=== PATIENT | female | born 1935 | race Caucasian/White ===

== ENCOUNTER → 2016-11-06 | Outpatient (CLI) | payer OTHER, BC ==
[~2016-11-06] MED LIST: APR25 PO; ASPI81TA28 PO; DILT360C22 PO; DOXY100C41 PO; HYG/25 PO; LISI10TA PO; LSN20 PO; OXYC-57 PO; SIMV20TA5 PO
[2016-11-06 10:03] LABS: HEMATOCRIT 39.5 % (37-47); MEAN CELL VOLUME 88.6 fL (80-100); MEAN CORPUSCULAR HEMOGLOBIN 30.7 pg (25-34); MEAN CORPUSCULAR HGB CONC 34.7 g/dl (32-36); MEAN PLATELET VOLUME 9.8 fL (7.4-10.4); PLATELET COUNT 316 K/uL (130-400); RED BLOOD COUNT 4.46 M/uL (4.2-5.4); WHITE BLOOD COUNT 7.89 K/uL (4.8-10.8)
[2016-11-06 10:14] LABS: URINE APPEARANCE CLEAR (CLEAR); URINE BILIRUBIN NEG (NEG); URINE COLOR YELLOW; URINE NITRITE NEG (NEG); URINE SPECIFIC GRAVITY 1.006 (1.000-1.030); UROBILINOGEN NEG (NEG)
[2016-11-06 10:16] LABS: ALT/SGPT 22 U/L (12-78); AST/SGOT 15 U/L (15-37); BLOOD UREA NITROGEN 12 mg/dl (7-18); BUN/CREATININE RATIO 11.1 (10-20); CARBON DIOXIDE 26 mmol/L (21-32); CHLORIDE 105 mmol/L (98-107); GLUCOSE 90 mg/dl (70-99); MANUAL MICROSCOPIC REQUIRED? NO; POTASSIUM 4.5 mmol/L (3.5-5.1); REVIEW REQ? NO; SODIUM 139 mmol/L (136-145)
[2016-11-06 10:20] LABS: ALKALINE PHOSPHATASE 55 U/L (45-117); CHOLESTEROL 221 mg/dl (0-200); CHOLESTEROL/HDL RATIO 1.7; HDL CHOLESTEROL 127 mg/dl; LDL CHOLESTEROL CALCULATED 63 mg/dl; PHOSPHORUS 3.8 mg/dl (2.5-4.9); TRIGLYCERIDES 154 mg/dl (0-150); VERY LOW DENSITY LIPOPROT CALC 31 mg/dl
== END | disposition home or self-care (01) ==
LOC: C.LAB1850 08:54
PROVIDERS: ATTEND Internal Medicine Nephrology
DX: E78.00 Pure hypercholesterolemia, unspecified (principal); N18.3 Chronic kidney disease, stage 3 (moderate)

== ENCOUNTER → 2017-01-04 | Outpatient (CLI) | payer OTHER, BC ==
--- NOTE | 2017-01-04 13:17 | MAMMOGRAPHY REPORT ---
UNILATERAL LEFT DIGITAL SCREENING MAMMOGRAM TOMOSYNTHESIS WITH CAD: 01/04/2017 CLINICAL HISTORY: Routine screening. Patient has no complaints. TECHNIQUE: Breast tomosynthesis in addition to standard 2D mammography was performed. Current study was also evaluated with a Computer Aided Detection (CAD) system. Left CC and MLO 2-D and tomosynth esis images were obtained. COMPARISON: Comparison is made to exams dated: 01/03/2016 mammogram, 12/30/2014 mammogram, 01/05/2015 ma mmogram, 12/29/2013 mammogram, 12/27/2012 mammogram, and 12/26/2011 mammogram - [facility]. BREAST COMPOSITION: There are scattered areas of fibroglandular density in the left breast. FINDINGS: No suspicious masses, calcifications, or areas of architectural distortion are noted in t he left breast. There has been no significant interval change compared to prior exams. Scattered b enign-appearing left breast calcifications are not significantly changed. IMPRESSION: ACR BI-RADS CATEGORY 2: BENIGN There is no mammographic evidence of malignancy. A 1 year screening mammogram is recommended. The p atient will receive written notification of the results. Approximately 10% of breast cancers are not detected with mammography. A negative mammographic repor t should not delay biopsy if a clinically suggestive mass is present. April Stearns M.D. /:01/04/2017 12:39:33 Deputy Commonwealth'S Attorney: Flory MARKS)(Eduardo), [facility] letter sent: Normal 1/2 BI-RADS Code: ACR BI-RADS Category 2: Benign
== END | disposition home or self-care (01) ==
LOC: C.MAMM 09:45
PROVIDERS: ATTEND Family Medicine
DX: Z12.31 Encounter for screening mammogram for malignant neoplasm of breast (principal)

== ENCOUNTER 2017-02-04 16:33 | Emergency (ER) | payer OTHER, BC ==
[~2017-02-04] VITALS: Ht 149.9 cm; Wt 51.8 kg
[~2017-02-04 16:33] MED LIST changes: -APR25 PO; -DOXY100C41 PO; -LSN20 PO; -OXYC-57 PO
[2017-02-04 16:37] VITALS: TEMP 36.3; Ht 149.9 cm; Wt 51.8 kg
[2017-02-04] MEDS ORDERED: DOXY100C41 PO (17:03)
[2017-02-04] MEDS ORDERED: APR25 PO (17:03)
[2017-02-04] MEDS ORDERED: LSN20 PO (17:03)
[2017-02-04 17:37] LABS: BASO % 0.1 %; BASO ABS # 0.01 K/uL (0-0.2); COMPLETE YES; EOS % 0.8 %; IG% 0.1 %; LYMPH % 44.4 %; LYMPH ABS # 3.14 K/uL (1.2-3.4); MEAN CELL VOLUME 86.7 fL (80-100); MEAN CORPUSCULAR HEMOGLOBIN 29.4 pg (25-34); MEAN CORPUSCULAR HGB CONC 33.9 g/dl (32-36); MEAN PLATELET VOLUME 9.4 fL (7.4-10.4); MONO % 5.9 %; NEUT % 48.7 %; PLATELET COUNT 278 K/uL (130-400); RED BLOOD COUNT 4.15 M/uL (4.2-5.4); WHITE BLOOD COUNT 7.07 K/uL (4.8-10.8)
[2017-02-04 17:47] LABS: INR 1.1 (0.9-1.1); PARTIAL THROMBOPLASTIN RATIO 0.9; PROTHROMBIN TIME (PATIENT) 11.3 SECONDS (9.0-12.0)
--- NOTE | 2017-02-04 17:49 | DIAGNOSTIC IMAGING REPORT ---
RIGHT HAND 3 VIEWS HISTORY: Right hand pain. COMPARISON: None. FINDINGS: There is no fracture or dislocation. Chondrocalcinosis within the wrist. Moderate degenerative changes seen within the right hand and wrist. Soft tissue swelling within the thumb and index finger. No radiopaque foreign bodies. IMPRESSION: 1. No definite fractures within the right hand. 2. Moderate degenerative changes and chondrocalcinosis. 3. Soft tissue swelling within the thumb and index finger. Electronically signed by: Kirk Merida M.D. 02/04/2017 5:47 PM Dictated Date/Time: 02/04/2017 5:43 PM
[2017-02-04 17:56] LABS: BUN/CREATININE RATIO 16.4 (10-20); CALCIUM 8.7 mg/dl (8.5-10.1); CREATININE 1.2 mg/dl (0.60-1.20); POTASSIUM 4.4 mmol/L (3.5-5.1)
[2017-02-04 18:10] VITALS: BP 180/77; PULSE 68; O2SAT 97
--- NOTE | 2017-02-04 19:48 | EMERGENCY ROOM VISIT NOTE ---
History Report prepared by Diane: Dillon Zamorano Under the Supervision of: Dr. Jed Wise M.D. First contact with patient: 17:06 Chief Complaint: SUN BURN Stated Complaint: SUN BURN HANDS AND NOSE History of Present Illness The patient is a 81 year old female who presents to the Emergency Room with concerns over a bruise on the back of her right hand that she noticed today. The patient states that she was digging weeds on Sunday, two days prior to arrival when she may have bumped the hand to cause the bruise. She got very sunburnt then and was concerned that the bruise on the back of her right hand was something secondary to the sunburn. She denies any recent rectal bleeding, melena, nose bleeds, or headaches. She is on daily Baby Aspirin but otherwise is not on any anticoagulants. She denies any easy bruising anywhere else. She has had no chest pain or shortness of breath or any other concerning symptoms. Source of History: patient Onset: Today Position: hand (right) Quality: other (Bruise) Timing: constant Associated Symptoms: No headache Review of Systems See HPI for pertinent positives & negatives. A total of 10 systems reviewed and were otherwise negative. Past Medical & Surgical Medical Problems: (1) Atrial Fibrillation (2) Breast cancer (3) Esophageal Reflux (4) Hyperlipidemia Nec/Nos (5) Hypertension (6) Hypertension Nos Family History Cancer Diabetes mellitus Gallbladder disease Hypertension Lung disease Social History Smoking Status: Never Smoker Alcohol Use: none Marital Status: Housing Status: lives with significant other Occupation Status: retired Current/Historical Medications Scheduled Aspirin (Aspirin Ec), 81 MG PO DAILY Chlorthalidone (Hygroton), 25 MG PO DAILY Diltiazem Hcl Extended Release (Tiazac 360 Mg), 360 MG PO DAILY Doxycycline (Monohydrate) (Monodox), 100 MG PO BID Hydralazine Hcl (Apresoline), 25 MG PO TID Lisinopril (Lisinopril), 40 MG PO DAILY Simvastatin (Zocor), 20 MG PO Q2D Allergies Coded Allergies: Penicillins (Verified Allergy, Intermediate, swelling, 03/05/15) Physical Exam Vital Signs Date Time Temp Pulse Resp B/P Pulse Ox O2 Delivery O2 Flow Rate FiO2 02/04/17 18:10 68 18 180/77 97 02/04/17 16:54 98 Room Air 02/04/17 16:37 36.3 63 16 173/77 98 Room Air Physical Exam Constitutional: Vital signs reviewed. Eyes: Pupils are equal round reactive to light. Conjunctiva are noninjected. ENT: Pharynx is clear without erythema or exudate. Mucous membranes are moist. Neck supple without meningeal signs. Respiratory: Clear to auscultation bilaterally. Breath sounds are equal bilaterally. Cardiovascular: Regular rate and rhythm. No rubs or gallops. GI: Soft, nondistended and nontender. Bowel sounds are present. Musculoskeletal: No lower extremity tenderness. No bruising to the lower extremities. There is a sunburn to the scalp, face, back of both hands with localized edema. There is a bruise to the dorsum of the right hand with no significant tenderness, no swelling to the right arm. Integumentary: See above. Neurological: The patient is awake and alert. No focal deficits. Psychiatric: Normal affect. Medical Decision & Procedures ER Provider Diagnostic Interpretation: Radiology results as stated below per my review and the radiologist's interpretation: RIGHT HAND 3 VIEWS HISTORY: Right hand pain. COMPARISON: None. FINDINGS: There is no fracture or dislocation. Chondrocalcinosis within the wrist. Moderate degenerative changes seen within the right hand and wrist. Soft tissue swelling within the thumb and index finger. No radiopaque foreign bodies. IMPRESSION: 1. No definite fractures within the right hand. 2. Moderate degenerative changes and chondrocalcinosis. 3. Soft tissue swelling within the thumb and index finger. Electronically signed by: Kirk Merida M.D. 02/04/2017 5:47 PM Dictated Date/Time: 02/04/2017 5:43 PM Laboratory Results 02/04/17 17:25 Red Blood Count 4.15, Mean Corpuscular Volume 86.7, Mean Corpuscular Hemoglobin 29.4, Mean Corpuscular Hemoglobin Concent 33.9, Mean Platelet Volume 9.4, Neutrophils (%) (Auto) 48.7, Lymphocytes (%) (Auto) 44.4, Monocytes (%) (Auto) 5.9, Eosinophils (%) (Auto) 0.8, Basophils (%) (Auto) 0.1, Neutrophils # (Auto) 3.43, Lymphocytes # (Auto) 3.14, Monocytes # (Auto) 0.42, Eosinophils # (Auto) 0.06, Basophils # (Auto) 0.01 02/04/17 17:25 Test 02/04/17 17:25 White Blood Count 7.07 K/uL (4.8-10.8) Red Blood Count 4.15 M/uL (4.2-5.4) Hemoglobin 12.2 g/dL (12.0-16.0) Hematocrit 36.0 % (37-47) Mean Corpuscular Volume 86.7 fL (80-100) Mean Corpuscular Hemoglobin 29.4 pg (25-34) Mean Corpuscular Hemoglobin Concent 33.9 g/dl (32-36) Platelet Count 278 K/uL (130-400) Mean Platelet Volume 9.4 fL (7.4-10.4) Neutrophils (%) (Auto) 48.7 % Lymphocytes (%) (Auto) 44.4 % Monocytes (%) (Auto) 5.9 % Eosinophils (%) (Auto) 0.8 % Basophils (%) (Auto) 0.1 % Neutrophils # (Auto) 3.43 K/uL (1.4-6.5) Lymphocytes # (Auto) 3.14 K/uL (1.2-3.4) Monocytes # (Auto) 0.42 K/uL (0.11-0.59) Eosinophils # (Auto) 0.06 K/uL (0-0.5) Basophils # (Auto) 0.01 K/uL (0-0.2) RDW Standard Deviation 42.9 fL (36.4-46.3) RDW Coefficient of Variation 13.4 % (11.5-14.5) Immature Granulocyte % (Auto) 0.1 % Immature Granulocyte # (Auto) 0.01 K/uL (0.00-0.02) Prothrombin Time 11.3 SECONDS (9.0-12.0) Prothromb Time International Ratio 1.1 (0.9-1.1) Activated Partial Thromboplast Time 24.5 SECONDS (21.0-31.0) Partial Thromboplastin Ratio 0.9 Anion Gap 10.0 mmol/L (3-11) Est Creatinine Clear Calc Drug Dose 25.9 ml/min Estimated GFR () 49.8 Estimated GFR (Non- 43.0 BUN/Creatinine Ratio 16.4 (10-20) Calcium Level 8.7 mg/dl (8.5-10.1) Total Bilirubin 0.6 mg/dl (0.2-1) Direct Bilirubin 0.2 mg/dl (0-0.2) Aspartate Amino Transf (AST/SGOT) 13 U/L (15-37) Alanine Aminotransferase (ALT/SGPT) 21 U/L (12-78) Alkaline Phosphatase 55 U/L (45-117) Total Protein 6.8 gm/dl (6.4-8.2) Albumin 4.0 gm/dl (3.4-5.0) Laboratory results as reviewed by me. ED Course 1708: The patient was evaluated in room D5. A complete history and physical exam was performed. 1800: Upon reevaluation, the patient was resting in bed. I discussed tonight's findings with her. She verbalized agreement of the treatment plan. The patient was discharged home. Medical Decision This is a 81-year-old female who presents with a bruise to her right hand and sunburn. Differential diagnoses considered include coagulopathy, thrombocytopenia, fracture, bruise. I did perform a limited focused review of portions of the patient's old chart on the electronic medical record. The patient had a normal CBC in October. I did evaluate the patient as noted above. The patient presents with simple sunburn. She is presenting here because she is concerned about a bruise to the back of her right hand. She has no other symptoms. There is no evidence of DVT. She has had no bleeding anywhere else for easy bruising. I did order and personally review the patient's hand x-rays as described above. I did order and review the patient's blood work as noted in the electronic medical record. Platelet count, LFTs and coagulation studies are unremarkable. I did discuss the test results with the patient. I did recommend follow with her doctor. She was discharged in good condition. Impression Primary Impression: Sunburn Additional Impression: Injury of right hand Scribe Attestation The scribe's documentation has been prepared under my direct and personally reviewed by me in its entirety. I confirm that the note above accurately reflects all work, treatment, procedures, and medical decision making performed by me. Departure Information Dispostion Home / Self-Care Referrals Florecita De La Cruz DO (PCP) Forms HOME CARE DOCUMENTATION FORM, IMPORTANT VISIT INFORMATION, WORK / SCHOOL INSTRUCTIONS Patient Instructions My [facility] Additional Instructions You have been examined and treated today on an emergency basis only. This is not a substitute for, or an effort to provide, complete comprehensive medical care. It is impossible to recognize and treat all injuries or illnesses in a single emergency department visit. It is therefore important that you follow up closely with your physician. Call as soon as possible for an appointment. Return for worsening symptoms or if you develop nosebleeds, headaches, rectal bleeding or any other concerning symptoms. Remember to apply sunscreen to your scalp. Problem Qualifiers Additional Impression: Injury of right hand Encounter type: initial encounter Qualified Codes: S69.91XA - Unspecified injury of right wrist, hand and finger(s), initial encounter
[2017-06-27] MEDS ORDERED: OXYC-57 PO (11:40)
== END 2017-02-04 18:12 | disposition home or self-care (01) ==
LOC: C.EDB 16:34 → C.EDD 18:12
DX: L55.9 Sunburn, unspecified (principal); S69.91XA Unspecified injury of right wrist, hand and finger(s), initial encounter; W22.8XXA Striking against or struck by other objects, initial encounter; I48.91 Unspecified atrial fibrillation; E78.5 Hyperlipidemia, unspecified; I10 Essential (primary) hypertension; Z83.3 Family history of diabetes mellitus; Z82.49 Family history of ischemic heart disease and other diseases of the circulatory system; Z79.82 Long term (current) use of aspirin

== ENCOUNTER 2017-02-19 07:14 | Emergency (ER) | payer OTHER, BC ==
[~2017-02-19] VITALS: Ht 151.1 cm; Wt 51.2 kg
[~2017-02-19 07:14] MED LIST changes: +APR25 PO; +DOXY100C41 PO; -LISI10TA PO; +LSN20 PO
[2017-02-19 07:15] VITALS: BP 186/86; PULSE 68; TEMP 36.4; O2SAT 100; Ht 151.1 cm; Wt 51.2 kg
[2017-02-19] MEDS ORDERED: XYLOCAINE 1%/SOD BICARB 20 ML VIAL INFIL ONE (07:27)
[2017-02-19] MEDS ORDERED: DOXYCYCLINE HYCLATE 100 MG CAP PO ONE (07:30)
--- NOTE | 2017-02-19 07:44 | EMERGENCY ROOM VISIT NOTE ---
ED Visit Note First contact with patient: 07:18 81-year-old female with a tick bite on her left back was fully evaluated by Bryson Mccall PA-C. Please see his note. I also independently evaluated the patient. The patient will be placed on doxycycline. IMPRESSION: Tick Bite
--- NOTE | 2017-02-19 07:48 | EMERGENCY ROOM VISIT NOTE ---
History First contact with patient: 07:18 Chief Complaint: BITE Stated Complaint: TICK History of Present Illness The patient is a 81 year old female who presents to the Emergency Room requesting tick removal from her back. The patient reports that she noticed the tick this morning. She attempted to remove the tick unsuccessfully, and is here requesting further prevention. She is uncertain how long the tick may have been attached. This is now her third tick bite this year. She denies any history of Lyme's disease. Denies any pain. Tetanus immunization is up-to- date. Review of Systems 6 system review was performed and was negative except for pertinent positives and negatives as indicated in history of present illness Past Medical/Surgical History Medical Problems: (1) Atrial Fibrillation (2) Breast cancer (3) Esophageal Reflux (4) Hyperlipidemia Nec/Nos (5) Hypertension (6) Hypertension Nos Family History Cancer Diabetes mellitus Gallbladder disease Hypertension Lung disease Social History Smoking Status: Former Smoker Alcohol Use: none Marital Status: Housing Status: lives with significant other Occupation Status: retired Current/Historical Medications Scheduled Aspirin (Aspirin Ec), 81 MG PO DAILY Chlorthalidone (Hygroton), 25 MG PO DAILY Diltiazem Hcl Extended Release (Tiazac 360 Mg), 360 MG PO DAILY Doxycycline (Monohydrate) (Monodox), 100 MG PO BID Hydralazine Hcl (Apresoline), 25 MG PO TID Lisinopril (Lisinopril), 40 MG PO DAILY Simvastatin (Zocor), 20 MG PO Q2D Allergies Coded Allergies: Penicillins (Verified Allergy, Intermediate, swelling, 03/05/15) Physical Exam Vital Signs Date Time Temp Pulse Resp B/P Pulse Ox O2 Delivery O2 Flow Rate FiO2 02/19/17 07:15 36.4 68 18 186/86 100 Room Air Physical Exam CONSTITUTIONAL: Healthy and well nourished. Alert and oriented X 3 with positive affect. HEENT: Normocephalic, atraumatic. Pupils equal, round and reactive. NECK: Full active range of motion without discomfort. RESPIRATORY: Clear to auscultation bilaterally with no wheezing, crackles, rhonchi or stridor. CARDIOVASCULAR: Regular rate and rhythm with no murmurs, rubs or gallops. INTEGUMENTARY: Examination shows a tick embedded within the left mid thoracic back region. There is a notable peripheral erythema and venous gilman. It is nontender to palpation. NEUROLOGIC: No focal neurologic deficits noted. Medical Decision & Procedures Procedure Tick removal was performed under local anesthesia at the patient's request. The area was painted with iodine and allowed to dry. Using buffered 1% lidocaine, a local wheal was administered. Using a 27-gauge needle, the remnant tick was then elevated and sharply excised using a #15 scalpel. The wound was then further cleansed, and bacitracin Band-Aid was applied. ED Course Patient history and physical exam were performed. Nurse's notes were reviewed. Vital signs were reviewed and normal. Tick removal was performed under local anesthesia. The patient was administered a prophylactic dose of doxycycline 200 mg. She was instructed to watch for any additional rash consistent with erythema migrans. Follow-up with family doctor as needed. The patient was happy with plan of care, and denied any pain at the time of discharge. The patient was also seen and evaluated by Dr. Holguin, ED attending physician, who agrees with workup and plan of care. Medical Decision Impression Primary Impression: Tick bite of left upper back excluding scapular region Departure Information Dispostion Home / Self-Care Forms HOME CARE DOCUMENTATION FORM, IMPORTANT VISIT INFORMATION Patient Instructions My [facility] Additional Instructions Keep wound clean and covered with an antibiotic ointment and Band-Aid until it heals. Watch for any worsening redness, swelling, pain or fever. You have been administered doxycycline 200 mg, which should negate your risk for Lyme's disease. Follow-up with your family doctor if you develop a "bullseye rash". Problem Qualifiers Primary Impression: Tick bite of left upper back excluding scapular region Encounter type: initial encounter Qualified Codes: S20.462A - Insect bite ( nonvenomous) of left back wall of thorax, initial encounter; W57.XXXA - Bitten or stung by nonvenomous insect and other nonvenomous arthropods, initial encounter
[2017-06-27] MEDS ORDERED: OXYC-57 PO (11:40)
== END 2017-02-19 07:55 | disposition home or self-care (01) ==
LOC: C.EDB 07:14 → C.EDA 07:55
DX: S20.462A Insect bite (nonvenomous) of left back wall of thorax, initial encounter (principal); W57.XXXA Bitten or stung by nonvenomous insect and other nonvenomous arthropods, initial encounter; I48.91 Unspecified atrial fibrillation; K21.9 Gastro-esophageal reflux disease without esophagitis; E78.5 Hyperlipidemia, unspecified; I10 Essential (primary) hypertension; Z79.82 Long term (current) use of aspirin; Z79.899 Other long term (current) drug therapy; Z85.3 Personal history of malignant neoplasm of breast; Z87.891 Personal history of nicotine dependence; Z82.49 Family history of ischemic heart disease and other diseases of the circulatory system; Z83.3 Family history of diabetes mellitus; Z83.6 Family history of other diseases of the respiratory system; Z83.79 Family history of other diseases of the digestive system

== ENCOUNTER → 2017-05-10 | Outpatient (CLI) | payer OTHER, BC ==
[~2017-05-10] MED LIST changes: -DOXY100C41 PO
[2017-05-10 12:39] LABS: BLOOD UREA NITROGEN 16 mg/dl (7-18); BUN/CREATININE RATIO 13.3 (10-20); CALCIUM 9.5 mg/dl (8.5-10.1); CARBON DIOXIDE 22 mmol/L (21-32); CHLORIDE 105 mmol/L (98-107); GLUCOSE 93 mg/dl (70-99); PHOSPHORUS 3.5 mg/dl (2.5-4.9); POTASSIUM 4.2 mmol/L (3.5-5.1); SODIUM 137 mmol/L (136-145)
[2017-05-10 13:38] LABS: URINE APPEARANCE CLEAR (CLEAR); URINE BILIRUBIN NEG (NEG); URINE COLOR YELLOW; URINE NITRITE NEG (NEG); URINE SPECIFIC GRAVITY 1.011 (1.000-1.030); UROBILINOGEN NEG (NEG)
[2017-05-10 13:43] LABS: MANUAL MICROSCOPIC REQUIRED? NO; REVIEW REQ? NO
== END | disposition home or self-care (01) ==
LOC: C.LAB1850 10:09
PROVIDERS: ATTEND Internal Medicine Nephrology
DX: N18.3 Chronic kidney disease, stage 3 (moderate) (principal)

== ENCOUNTER → 2017-05-17 | Day surgery (SDC) | payer OTHER, BC ==
[~2017-05-17] MED LIST changes: +OPTIRAY 320 IV PRN; +OXYC-57 PO
--- NOTE | 2017-05-17 10:44 | DIAGNOSTIC IMAGING REPORT ---
ANGIOGRAPHY NECK COMBO HISTORY: 81 years Female CAROTID STENOSIS. The patient has history of 80% stenosis of the left internal carotid artery and 80-90% stenosis of the right internal carotid artery. History of prior left-sided carotid endarterectomy. History of breast cancer. COMPARISON: CTA of the neck 08/13/2014 TECHNIQUE: CTA of the neck was obtained following the intravenous administration of 118 mL Optiray 320. 3-D coronal and sagittal MIPS were obtained from the axial data set and submitted for review. A dose lowering technique was used consistent with the principles of ALARA. Measurements were made by NASCET criteria. FINDINGS: CTA: Noncontrast scan demonstrates no evidence of intramural hematoma. There is moderate to extensive atherosclerotic plaquing of the thoracic aortic arch and bilateral carotid arteries, right greater than left. There is focal kinking of the right subclavian artery at the level of the right first rib as seen on image 87 of the axial series causing 50% stenosis. This appears unchanged. Additionally, there is a large plaque at the origin of the right subclavian artery causing approximately 70% narrowing. Atherosclerotic plaquing at the origin of the left common carotid artery is again noted causing approximately 50% narrowing. Bilateral common carotid arteries are otherwise patent with scattered areas of plaque noted. Prior left carotid endarterectomy without evidence of high-grade stenosis by NASCET criteria. Atherosclerotic plaquing is also seen at the clinoid portion of the left internal carotid artery without high-grade narrowing. Extensive atherosclerotic plaque at the origin of the right internal carotid artery is again seen, most pronounced on image 208 and 214 of the axial series with stenosis of approximately 90%. The remaining right carotid vasculature is patent with atherosclerotic plaque infraclinoid portion. These findings appear generally stable from comparison study. Large calcified plaque of the right ICA measures up to 2.4 cm in length. The left vertebral artery is dominant. Atherosclerotic plaquing at the origin of the right vertebral artery causes approximately 70% stenosis (see images 95 through 98 of the axial series). The basilar artery is patent and appears normal. No dissection or aneurysm is seen. CT NECK: Centrilobular emphysematous changes are noted within the imaged lung apices. There are a few scattered groundglass opacities of the right lung apex measuring up to 8 mm which are only partially imaged. Pleural parenchymal scarring is seen within the right lung apex. Subcentimeter nodules are seen throughout the thyroid. Airways patent. There is mild sphenoid and ethmoid sinus disease. Multilevel advanced degenerative changes are seen throughout the spine. IMPRESSION: 1. Prior left carotid endarterectomy without evidence of high-grade left ICA stenosis. 2. Approximately 90% narrowing of the proximal right internal carotid artery secondary to large atherosclerotic plaque. 3. Atherosclerotic plaquing at the origin of the right vertebral artery causes approximately 70% narrowing. 4. Additional areas of narrowing are seen within the right subclavian artery which appear unchanged from comparison study dated 08/13/2014. 5. Incompletely imaged scattered groundglass opacities in the right upper lobe could be further evaluated with CT of the chest. The above report was generated using voice recognition software. It may contain grammatical, syntax or spelling errors. Electronically signed by: Feliz Jesus M.D. 05/17/2017 10:43 AM Dictated Date/Time: 05/17/2017 10:22 AM
== END | disposition home or self-care (01) ==
LOC: C.CTS 09:53
PROVIDERS: ATTEND Physician Assistant
DX: I77.1 Stricture of artery (principal); I67.2 Cerebral atherosclerosis

== ENCOUNTER 2017-06-26 05:16 | Inpatient (IN) | payer OTHER, BC ==
[2017-06-08 10:40] VITALS: BMI 22.0
--- NOTE | 2017-06-08 11:20 | PAT Medication Instructions ---
Service Date Jun 08, 2017. Current Home Medication List Aspirin (Aspirin Ec), 81 MG PO QAM Diltiazem Hcl Extended Release (Tiazac 360 Mg), 360 MG PO QAM Lisinopril (Lisinopril), 40 MG PO BID Simvastatin (Zocor), 20 MG PO Q2D Medication Instructions For Your Scheduled Surgery Simvastatin (Zocor), 20 MG PO Q2D (continue as directed) - Hold the following medications the morning of surgery: Lisinopril (Lisinopril), 40 MG PO BID - Take the following medications the morning of surgery with a sip of water: Diltiazem Hcl Extended Release (Tiazac 360 Mg), 360 MG PO QAM Aspirin (Aspirin Ec), 81 MG PO QAM (okay to continue per surgeon) - Hold the following medications as scheduled the night before surgery: Lisinopril (Lisinopril), 40 MG PO BID If you have any questions please call us at [phone] or [phone] or [phone]
--- NOTE | 2017-06-08 12:10 | DIAGNOSTIC IMAGING REPORT ---
CHEST PREADMISSION(PA/LAT) CLINICAL HISTORY: Preoperative chest COMPARISON STUDY: 04/03/2014 FINDINGS: The cardiac and mediastinal contours are normal. There is no evidence of focal pulmonary consolidation. There is no evidence of failure. No pleural effusions are visualized.[ IMPRESSION: No active disease in the chest. Electronically signed by: Fabien Brown M.D. 06/08/2017 12:08 PM Dictated Date/Time: 06/08/2017 12:08 PM
[2017-06-08 13:22] LABS: PARTIAL THROMBOPLASTIN RATIO 0.9; PROTHROMBIN TIME (PATIENT) 10.6 SECONDS (9.0-12.0)
[2017-06-08 13:26] LABS: BUN/CREATININE RATIO 12.7 (10-20); CREATININE 1.3 mg/dl (0.60-1.20); POTASSIUM 4.2 mmol/L (3.5-5.1)
[2017-06-08 15:41] LABS: BASO % 0.2 %; BASO ABS # 0.01 K/uL (0-0.2); COMPLETE YES; EOS % 1.4 %; HEMATOCRIT 34.8 % (37-47); IG% 0.3 %; LYMPH % 42.4 %; LYMPH ABS # 2.71 K/uL (1.2-3.4); MEAN CELL VOLUME 89.9 fL (80-100); MEAN CORPUSCULAR HEMOGLOBIN 30.2 pg (25-34); MEAN CORPUSCULAR HGB CONC 33.6 g/dl (32-36); MEAN PLATELET VOLUME 9.6 fL (7.4-10.4); MONO % 5.5 %; NEUT % 50.2 %; PLATELET COUNT 284 K/uL (130-400); RED BLOOD COUNT 3.87 M/uL (4.2-5.4); WHITE BLOOD COUNT 6.39 K/uL (4.8-10.8)
[2017-06-26] VITALS (24 sets, daily range): BP systolic 80–164; BP diastolic 32–91; PULSE 36–57; TEMP 36.4–36.8; O2SAT 94–100; Ht 147.3 cm; Wt 52.4 kg
[~2017-06-26] VITALS: Ht 147.3 cm; Wt 52.4 kg
[~2017-06-26 05:16] MED LIST changes: -APR25 PO; -HYG/25 PO; -OPTIRAY 320 IV PRN; -OXYC-57 PO
[2017-06-26] MEDS ORDERED: LACTATED RINGER'S 1000ML 1,000 ML IV SCH ×2 (06:00)
--- NOTE | 2017-06-26 06:00 | History and Physical ---
History & Physical Date of Service Jun 26, 2017. History & Physical Allergies: PENICILLIN. CC: Severe right internal caroitd artery stenosis HPI: Mrs. Wray underwent a left carotid endarterectomy in July 2014, due to a symptomatic carotid disease. The patient presents today for a followup. She denies any complaints at this time including amaurosis, unilateral extremity weakness, numbness, or tingling, facial droop, difficulty speaking, or swallowing, sudden onset confusion or severe headaches or other complaints. She continues to be fully independent. She did have an ultrasound prior to today's appointment, which demonstrates a severe stenosis of her right internal carotid artery, patent left carotid endarterectomy site with intimal thickening, and antegrade flow in both vertebrals and no significant stenosis of her bilateral subclavian arteries. In comparison with the previous ultrasound performed a year ago, the ICA/CCA ratio increased from 3.4 to 6.5 in the right carotid, and her peak systolic velocity increased to 364 with a diastolic velocity of 104. This is indicative of a severe stenosis. This was confirmed by CTA. Medications: Reviewed. No changes were made to her home medications. Past Medical History: Positive for hypertension, cancer and stroke. Previous Surgeries: Include tonsillectomy, , breast biopsies, stomach surgery, mastectomy and bowel surgery. Family History: Positive for cancer. Social History: She quit smoking in 2004. She does not drink. Review of Systems: Ten-review of systems was answered. Her only complaints were as the history of present illness. PHYSICAL EXAM: Her vital signs are as follows: Blood pressure 126/50 with a heart rate of 64, oxygen 98% on room air. Constitutional: In general, patient is a healthy-appearing for age, well-nourished, well-developed elderly female, in no acute distress. She ambulates without assistance, and is active, alert, and oriented x4. Her right carotid does not demonstrate significant bruit. Her left demonstrates a faint bruit. Heart demonstrates a regular rate and rhythm. Lungs are clear. She has +3 brachial radial and femoral pulses. Her lower extremity distal pulses are +1 PT and DP. She has brisk capillary refill. No sign of distal ischemia. Imp: Right internal carotid artery stenosis Plan: Patient is admitted for a right CEA. I have discussed the risks options and benefits of the procedure with the patient. The patient understands the risks options and benefits and agrees to the procedure.
[2017-06-26] MEDS ORDERED: FENTANYL CITRATE INJ 50 MCG/1 ML 2 ML VIAL IV PRN (06:15)
[2017-06-26] MEDS ORDERED: ONDANSETRON INJ 2 MG/ML 2 ML VIAL IV PRN ×2 (06:15→10:00)
[2017-06-26] MEDS ORDERED: ATROPINE SULFATE 0.1 MG/ML 5ML SYR IV PRN (06:15)
[2017-06-26] MEDS ORDERED: EpHEDrine SULFATE INJ 50 MG/ML AMP IV PRN (06:15)
[2017-06-26] MEDS ORDERED: HYDROmorphone INJ 1 MG/ML SYR IV PRN (06:15)
[2017-06-26] MEDS ORDERED: THROMBIN FOR SOLN 20000 UNIT KIT ONE (06:56)
[2017-06-26] MEDS ORDERED: GELATIN SPONGE 12-7MM ONE (06:56)
[2017-06-26] MEDS ORDERED: LIDOCAINE HCL 1% 20 ML VIAL ONE (06:57)
[2017-06-26] MEDS ORDERED: HEPARIN SOD (PORCINE) 1000 UNIT/ML 10 ML VIAL ONE ×3 (06:57→07:20)
[2017-06-26] MEDS ORDERED: BUPIVACAINE/EPINEPHRINE 0.5% MPF 1:200,000 10 ML VIAL ONE ×2 (06:57→06:58)
[2017-06-26] MEDS ORDERED: CEFAZOLIN SOD 1 GM VIAL ONE (06:57)
[2017-06-26] MEDS: CLINDAMYCIN 600 MG/54 ML D5W IV SCH ×2 (07:00→07:28)
--- NOTE | 2017-06-26 07:07 | History & Physical Bridge Note ---
H&P Re-Evaluation Bridge Note: I have examined the patient, reviewed the History & Physical and in the interval since the performance of the History & Physical I have noted the following changes of clinical significance: No changes noted
[2017-06-26] MEDS ORDERED: GLYCOPYRROLATE INJ 0.2 MG/ML VIAL ONE (07:15)
[2017-06-26] MEDS ORDERED: PHENYLEPHRINE HCL INJ 10 MG/ML VIAL ONE (07:15)
[2017-06-26] MEDS ORDERED: EpHEDrine SULFATE INJ 50 MG/ML AMP ONE (07:15)
[2017-06-26] MEDS ORDERED: ONDANSETRON INJ 2 MG/ML 2 ML VIAL ONE ×2 (07:15→10:25)
[2017-06-26] MEDS ORDERED: PROPOFOL IV EMULSION 10 MG/ML 20 ML VIAL IV ONE (07:15)
[2017-06-26] MEDS ORDERED: SUCCINYLCHOLINE CHLORIDE 20 MG/ML 10 ML VIAL IV ONE (07:15)
[2017-06-26] MEDS ORDERED: LIDOCAINE HCL 2% 2 ML VIAL (20MG/ML) ONE (07:15)
[2017-06-26] MEDS ORDERED: NEOSTIGMINE METHYLSULFATE 5 MG/5 ML SYR ONE (07:15)
[2017-06-26] MEDS ORDERED: ROCURONIUM BROMIDE 10 MG/ML 5 ML VIAL IV ONE (07:15)
[2017-06-26] MEDS ORDERED: DEXAMETHASONE SOD INJ 4 MG/ML VIAL ONE ×2 (07:15→10:25)
[2017-06-26] MEDS ORDERED: FENTANYL CITRATE INJ 50 MCG/1 ML 2 ML VIAL ONE (07:16)
[2017-06-26] MEDS ORDERED: MIDAZOLAM HCL 1 MG/ML 2ML VIAL ONE (07:16)
[2017-06-26] MEDS ORDERED: PROTAMINE SULFATE 10 MG/ML 5 ML VIAL IV ONE (07:20)
[2017-06-26] MEDS ORDERED: BACITRACIN 50000 UNIT VIAL ONE (08:03)
[2017-06-26] MEDS ORDERED: SODIUM NITROPRUSSIDE SOLN INJ 50 MG in DEXTROSE 5% 500ML 500 ML IV PRN (09:55)
[2017-06-26] MEDS ORDERED: PHENYLEPHRINE HCL INJ 20 MG in DEXTROSE 5% 500ML 500 ML IV PRN (09:55)
[2017-06-26] MEDS ORDERED: NITROGLYCERIN/D5W 100 MCG/ML 250 ML IV PRN (09:55)
--- NOTE | 2017-06-26 09:55 | [facility] Post Operative Brief Note ---
Immediate Operative Summary Operative Date Jun 26, 2017. Pre-Operative Diagnosis Right Carotid Stenosis Post-Operative Diagnosis Right Carotid Stenosis Procedure(s) Performed Right Carotid Endarterectomy with patch Surgeon Dr. Pepe Clinical Tech Surgeon(s) Daniel Vivar- Resident Estimated Blood Loss 50ML Findings severe plaque of ica origin Specimens A. Right Carotid Plaque Anesthesia Gen Complication(s) None Disposition Recovery Room / PACU
[2017-06-26] MEDS ORDERED: METOPROLOL TARTRATE 1 MG/ML VIAL IV PRN (10:00)
[2017-06-26] MEDS ORDERED: OXYCODONE/ACETAMINOPHEN 5-325 TAB PO PRN (10:00)
[2017-06-26] MEDS ORDERED: MoRPHine SULFATE 4 MG/ML 1 ML CARP\\VIAL IV PRN (10:00)
--- NOTE | 2017-06-26 10:39 | [facility] Operative Report ---
Operative Report Operative Date Jun 26, 2017. Pre-Operative Diagnosis Right Carotid Stenosis Post-Operative Diagnosis Right Carotid Stenosis Procedure(s) Performed Right Carotid Endarterectomy with patch Surgeon Dr. Pepe Mophead Trimmer And Wrapper Surgeon(s) Daniel Vivar- Resident Estimated Blood Loss 50ML Findings Patient had a heavily calcified plaque in the right common and internal carotid artery. Specimens A. Right Carotid Plaque Anesthesia Gen Complication(s) None Disposition Recovery Room / PACU Indications Mrs. Wray underwent a left carotid endarterectomy in July 2014, due to a symptomatic carotid disease. The patient presents today for a followup. She denies any complaints at this time including amaurosis, unilateral extremity weakness, numbness, or tingling, facial droop, difficulty speaking, or swallowing, sudden onset confusion or severe headaches or other complaints. She continues to be fully independent. She did have an ultrasound prior to today's appointment, which demonstrates a severe stenosis of her right internal carotid artery, patent left carotid endarterectomy site with intimal thickening , and antegrade flow in both vertebrals and no significant stenosis of her bilateral subclavian arteries. In comparison with the previous ultrasound performed a year ago, the ICA/CCA ratio increased from 3.4 to 6.5 in the right carotid, and her peak systolic velocity increased to 364 with a diastolic velocity of 104. This is indicative of a severe stenosis. This was confirmed by CTA. Description of Procedure The patient was brought to the operating room, where an arterial line was placed and general anesthesia was secured. The right neck was prepped and sterilely draped. An oblique incision was made along the anterior border of the right sternocleidomastoid muscle. The platysma was divided and dissection was carried down to the carotid sheath. The facial vein was doubly ligated and divided exposing the carotid bifurcation. The vagus nerve and XII nerve were identified and kept free from dissection and retraction. The internal, external , and common carotid arteries were dissected free proximally and distally. The inferior belly of the digastric was divided to obtain more exposure of the internal carotid artery. 6000 U of Heparin was given intravenously. The external carotid as well as superior thyroid vessels were encircled with vessel loops. Once the heparin was allowed to circulate for approximately 5 minutes, clamps were placed starting with the internal carotid and common carotid and external carotid. An anterior arteriotomy was made on the common carotid artery using an 11 blade. Barbosa scissors was used to extend the arteriotomy through the plaque on to the distal soft internal carotid artery. The plaque was heavily calcified, ulcerated, and nearly occlusive. A shunt was then inserted into the into the internal carotid artery and revealed good backbleeding. The proximal end of the shunt was then inserted into the common carotid artery and secured in place. The Doppler attached to the shunt was turned on and revealed good flow through the shunt. A Tipton elevator was used to create an endarterectomy plane. The proximal endpoint was created using Barbosa scissors as well as a distal endpoint was created with the Barbosa scissors. The plaque was freed out of the external carotid artery.With downward retraction on the plaque, a smooth distal endpoint was created. All debris was meticulously debrided from the inside of the lumen and confirmed with instillation of heparinized saline. Once endarterectomy was completed, an Aquacel patch was then cut to the appropriate size and sewn into internal carotid artery using a PTFE 6-0 sutures starting at the internal carotid artery corner of the arteriotomy. Before the patch was completed, the shunt was pulled and all the arteries were backbleed extruding any air and debris. The patch was then completed. The external carotid clamp was removed first, followed by the common carotid artery clamp, and finally the internal carotid artery clamp, restoring blood flow to the brain. Patient did have some oozing and a 6-0 Prolene suture was used to achieve hemostasis as well as thrombin soaked gel foam. Meticulous hemostasis was secured. The wound was then closed in multiple layers using 3-0 Vicryl suture then a 4-0 Vicryl subcutaneous layer closing the skin. Dermabond was applied over the incision. The patient tolerated the procedure well and was extubated on table. The patient was moving all four extremities to command prior to and upon transfer to the recovery room. I, Dr. Pepe was present and scrubbed for the entire procedure. Dr. Pepe was present and scrubbed for the entirety of the case. I attest to the content of the Intraoperative Record and any orders documented therein. Any exceptions are noted below.
[2017-06-26] MEDS ORDERED: LABETALOL HCL IV 5 MG/ML 20ML IV ONE ×2 (10:41→12:24)
--- NOTE | 2017-06-26 11:18 | Anesthesiology Progress Note ---
Anesthesia Post Op Note Date & Time Jun 26, 2017 at 11:17 Vital Signs Pain Intensity: 0 Vital Signs Past 12 Hours Date Time Temp Pulse Resp B/P (MAP) Pulse Ox O2 Delivery O2 Flow Rate FiO2 06/26/17 11:05 55 16 134/52 100 Oxymask 3 06/26/17 10:55 56 16 134/58 100 Oxymask 5 06/26/17 10:45 59 16 139/65 100 Oxymask 5 06/26/17 10:35 36.0 62 16 152/69 100 Oxymask 10 06/26/17 05:58 36.4 57 18 164/84 98 Room Air Notes Mental Status: alert / awake / arousable, participated in evaluation Pt Amnestic to Procedure: Yes Nausea / Vomiting: adequately controlled Pain: adequately controlled Airway Patency, RR, SpO2: stable & adequate BP & HR: stable & adequate Hydration State: stable & adequate Anesthetic Complications: no major complications apparent Doing well. Comfortable. VSS.
[2017-06-26] MEDS: CLINDAMYCIN IV 600 MG in DEXTROSE 5% 50ML 50 ML IV SCH ×2 (12:16→20:35)
[2017-06-26] MEDS: D5W AND 1/2NSS 1,000 ML IV SCH ×2 (12:16→22:11)
[2017-06-26] MEDS ORDERED: NITROGLYCERIN 5 MG/ML 10 ML VIAL ONE (12:24)
--- NOTE | 2017-06-26 14:03 | Critical Care Consultation ---
Critical Care Consultation Date of Consultation: Jun 26, 2017. Attending Physician: Doyle Pepe M.D. Reason for Consultation: Status Post CEA w/ Patch History of Present Illness Patient is a 81-year-old female with a significant past mental history for hypertension, TIAs, and breast cancer who was admitted to the ICU postoperatively status post RIGHT carotid endarterectomy with patch performed by Dr. Pepe. She had an estimated blood loss of 50 mL. There were no complications reported intraoperatively or postoperatively. Patient and family provide history. Patient has a history of hypertension as well as previous history of smoking. She quit in 2004. Approximately 5 years ago, the patient had experienced "a few" TIAs. She was evaluated and found to have significant LEFT-sided carotid stenosis. She underwent LEFT-sided CEA in 2013. Serial ultrasounds demonstrated worsening deposition to the RIGHT sided carotid. She was referred to Dr. Pepe by her primary care provider. She was asymptomatic from this RIGHT-sided stenosis, thankfully. The patient is currently awake and rates mild discomfort at the incision site rating her discomfort a 2/10. She reports some pain with swallowing as well. She currently denies any headaches, dizziness, lightheadedness, blurry vision, double vision, nausea, vomiting, chest pain, palpitations, shortness of breath, vomiting, or abdominal pain. Past Medical/Surgical History HTN Hyperlipidemia TIAs Breast CA Family History Cancer Diabetes mellitus Gallbladder disease Hypertension Lung disease Social History Smoking Status: Former Smoker Smokeless Tobacco Use: No Drug Use: none Marital Status: Housing Status: lives with significant other Occupation Status: retired Allergies Coded Allergies: Penicillins (Verified Allergy, Intermediate, "swelling" (pt does not remember where), 06/26/17) Home Medications Scheduled Aspirin (Aspirin Ec), 81 MG PO QAM Diltiazem Hcl Extended Release (Tiazac 360 Mg), 360 MG PO QAM Lisinopril (Lisinopril), 40 MG PO BID Simvastatin (Zocor), 20 MG PO Q2D Current Inpatient Medications Current Inpatient Medications Medications (Trade) Dose Ordered Sig/Gunjan Route Start Time Stop Time Status Last Admin Dose Admin Lactated Ringer's 1,000 ml @ 15 mls/hr Q24H IV 06/26/17 06:00 06/27/17 05:59 Clindamycin Phosphate 54 ml @ 100 mls/hr TODAY@07 IV 06/26/17 06:00 06/26/17 18:00 06/26/17 07:28 100 MLS/HR Lactated Ringer's 1,000 ml @ 80 mls/hr [id number] IV 06/26/17 06:00 06/26/17 18:29 06/26/17 05:57 80 MLS/HR Acetaminophen (Tylenol Tab) 650 mg Q4H PRN PO 06/26/17 10:00 07/26/17 09:59 Oxycodone/ Acetaminophen (Percocet 5-325mg Tab) FOR MODERATE PAIN ... Q4H PRN PO 06/26/17 10:00 07/10/17 09:59 Morphine Sulfate (MoRPHine SULFATE INJ) 4 mg Q4H PRN IV 06/26/17 10:00 07/10/17 09:59 Ondansetron HCl (Zofran Inj) 4 mg Q6H PRN IV 06/26/17 10:00 07/26/17 09:59 Clindamycin Phosphate 600 mg/ Dextrose 54 ml @ 100 mls/hr Q8H IV 06/26/17 12:00 06/26/17 20:33 06/26/17 12:16 100 MLS/HR Metoprolol Tartrate (Lopressor Iv) 5 mg Q10M PRN IV 06/26/17 10:00 07/26/17 09:59 Nitroglycerin/ Dextrose 250 ml @ 0 mls/hr Q0M PRN IV 06/26/17 09:55 07/26/17 09:54 Sodium Nitroprusside 50 mg/Dextrose 502 ml @ 0 mls/hr Q0M PRN IV 06/26/17 09:55 07/26/17 09:54 Dextrose/Sodium Chloride 1,000 ml @ 125 mls/hr Q8H IV 06/26/17 11:30 07/26/17 11:29 06/26/17 12:16 125 MLS/HR Phenylephrine HCl 20 mg/Dextrose 502 ml @ 0 mls/hr Q0M PRN IV 06/26/17 09:55 07/26/17 09:54 Enoxaparin Sodium (Lovenox Inj) 30 mg DAILY@0800 SQ 06/27/17 08:00 07/27/17 07:59 Aspirin (Ecotrin Tab) 81 mg QAM PO 06/27/17 09:00 07/27/17 08:59 Diltiazem HCl (TIAzac CAP) 360 mg QAM PO 06/27/17 09:00 07/27/17 08:59 Lisinopril (Zestril Tab) 40 mg BID PO 06/26/17 21:00 07/26/17 20:59 Simvastatin (Zocor Tab) 20 mg Q2D@2100 PO 06/26/17 21:00 07/26/17 20:59 Review of Systems A complete 10-point Review of Systems was discussed with the patient, with pertinent positives and negatives listed in the History of Present Illness. All remaining Review of Systems questions can be considered negative unless otherwise specified. Physical Exam Date Time Temp Pulse Resp B/P (MAP) Pulse Ox O2 Delivery O2 Flow Rate FiO2 06/26/17 11:35 Nasal Cannula 2.0 06/26/17 11:35 36.5 45 16 141/64 (89) 95 Nasal Cannula 2.0 144/49 (80) 06/26/17 11:25 50 16 121/48 100 Nasal Cannula 2 06/26/17 11:23 51 16 135/53 100 Nasal Cannula 2 06/26/17 11:15 36.2 51 16 135/52 100 Nasal Cannula 2 06/26/17 11:05 55 16 134/52 100 Oxymask 3 06/26/17 10:55 56 16 134/58 100 Oxymask 5 06/26/17 10:45 59 16 139/65 100 Oxymask 5 06/26/17 10:35 36.0 62 16 152/69 100 Oxymask 10 06/26/17 05:58 36.4 57 18 164/84 98 Room Air VITAL SIGNS - Vital signs and nursing notes were reviewed. GENERAL - 81-year-old female appearing her stated age who is in no acute distress. Communicates well with provider and answers questions appropriately. HEAD - Normocephalic, Atraumatic. No Sylvester's Sign or Raccoon's Eyes. No depressed skull fractures palpable. EYES - PERRL with EOMI bilaterally. Sclera anicteric. Arcus senilis present bilaterally. Palpebral conjunctiva pink and moist with no injection noted. EARS - No deformities of external structures noted on gross examination bilaterally. NOSE - Midline and without cyanosis. No epistaxis or purulent drainage noted. Septum midline without deviation or septal hematoma noted. MOUTH/OROPHARYNX - Without perioral cyanosis. Buccal mucosa pink and dry. Tongue midline with equal elevation of palate bilaterally. No tonsillar hypertrophy, erythema, or exudates noted. NECK - Surgical incision present to the RIGHT sided neck. No hematoma or significant edema appreciated. No palpable thrill. No audile bruit. Supple to palpation. LUNGS - Chest wall symmetric without accessory muscle use, intercostals retractions, or central cyanosis. Normal vesicular breath sounds CTA B/L. No wheezes, rales, or rhonchi appreciated. CARDIAC - RRR with S1/S2. No murmur, rubs, or gallops appreciated. ABDOMEN - Abdominal contour flat and without pulsations or visible masses. BS normoactive all four quadrants. No tenderness, palpable masses, hepatosplenomegaly, or ascites noted. EXTREMITIES - No pretibial edema present. +3/5 radial and dorsalis pedis pulses palpated throughout. +5/5 strength noted in UE/LE bilaterally. NEUROLOGIC - Cranial nerves II through XII grossly intact. Sensory intact to light touch throughout. PSYCH - A&Ox3 and cooperates fully with examiner. Pt is very pleasant and interacts well with examiner. Diagnostic Results EKG was obtained and reviewed by myself. EKG demonstrates a sinus bradycardia at a rate of 40 bpm. Incomplete right bundle persists. QTC 414. When compared to EKG on 06/08/2017, no significant changes appreciated. Assessment & Plan (1) Hypertension (2) Stenosis of right carotid artery without infarction (3) Hypertension Nos (4) Hyperlipidemia Nec/Nos Reason Critically Ill: Status Post RIGHT CEA w/ Patch. Bradycardia. Neuro - * CAM ICU: NEGATIVE * Treat pain w/ Tylenol, Percocet, Morphine as ordered. * History of TIAs - neuro checks per protocol. Cardiac - * Hypertension. * Diltiazem, Lisinopril. Restart as BP tolerates. * Post Operative Bradycardia. * Asymptomatic at this point. * Placed Pacer Pads Preemptively. * EKG shows Sinus Bradycardia w/o change from prior. * On review of prior hospital visits and procedures, her HR is typically in the 60's, however she did have profound Bradycardia s/p LEFT CEA performed in 2013. Will continue to monitor. * Would avoid BBs for HTN given profound bradycardia. * Will continue to monitor closely for any changes. Respiratory - * No history of pulmonary disease. * Will monitor pulse oximetry closely. GI - * Will progress diet as tolerated. RENAL/LYTES - * Creatine 1.30 - appears to be patient's baseline. * Continue IVF per surgeon. - * No reported issues. ENDO - * No history of DM or Thyroid Dz. * Will watch BSGs for any concerning lab values. Correct appropriately. HEME - * H&H stable. * EBL 50 mL * Will watch closely for any bleeding concerns. ID - * Receiving Clindy IV postoperatively per surgeon. * Will monitor fever curve. LINES/IV ACCESS - * PIV intact. DVT PROPHYLAXIS - * Lovenox 30 mg SQ daily. * SCDs. Thank you for this consultation allow us to be part of this patient's care. Please refer to my attending physician's documentation for any further recommendations. I have personally evaluated and examined this patient. I agree with assessment and plan of Jeni Santana PA-C.
[2017-06-26] MEDS: ACETAMINOPHEN 325 MG TAB PO PRN (17:36)
--- NOTE | 2017-06-26 19:53 | DIAGNOSTIC IMAGING REPORT ---
ULTRASOUND OF THE CAROTID ARTERIES CLINICAL HISTORY: Status post carotid endarterectomy. History of carotid stenosis. COMPARISON STUDY: CT angiography the neck dated 05/17/2017 TECHNIQUE: Real-time, grayscale, and color Doppler sonography of the carotid arteries was performed. Imaging reviewed in the transverse and longitudinal planes. NASCET criteria was utilized for stenosis calcification. FINDINGS: There is mild atherosclerotic plaque present . The peak systolic velocity within the right internal carotid artery is 58 cm/sec. The systolic velocity ratio of right internal to common carotid artery is 1. There is trace fluid surrounding the right common carotid artery, likely postsurgical. No flow is visualized within the proximal right external carotid artery. There is reversed flow within the distal right external carotid artery. The peak systolic velocity within the left internal carotid artery is 102 cm/sec. The systolic velocity ratio left internal to common carotid artery is 1.0. Antegrade flow is seen in the vertebral arteries. IMPRESSION: 1. No evidence of internal carotid artery stenosis 2. Occlusion of the proximal right external carotid artery Electronically signed by: Fabien Brown M.D. 06/26/2017 7:52 PM Dictated Date/Time: 06/26/2017 7:48 PM
--- NOTE | 2017-06-26 20:28 | DIAGNOSTIC IMAGING REPORT ---
CT HEAD WITHOUT CONTRAST (CT) CLINICAL HISTORY: Possible stroke status post carotid endarterectomy. COMPARISON STUDY: 08/13/2014 TECHNIQUE: Axial CT of the brain is performed from the vertex to the skull base. IV contrast was not administered for this examination. A dose lowering technique was utilized adhering to the principles of ALARA. CT DOSE: 537.48 mGy.cm FINDINGS: No intra or extra-axial mass lesions are visualized. There is no CT evidence of acute cortical infarction. There is no evidence of midline shift. There is no acute hemorrhage. No calvarial fractures are visualized. There are moderate white matter hypodensities likely on a small vessel basis. There is no evidence of pathologic ventricular dilatation. There is no evidence of acute sinusitis IMPRESSION: No acute intracranial findings Electronically signed by: Fabien Brown M.D. 06/26/2017 8:27 PM Dictated Date/Time: 06/26/2017 8:25 PM
[2017-06-26] MEDS: LISINOPRIL 20 MG TAB PO SCH (20:33)
[2017-06-26] MEDS ORDERED: SIMVASTATIN 20 MG TAB PO SCH (21:00)
[2017-06-27] VITALS (8 sets, daily range): BP systolic 118–148; BP diastolic 47–63; PULSE 42–60; TEMP 36.8–37; O2SAT 96–99
[2017-06-27] MEDS: ACETAMINOPHEN 325 MG TAB PO PRN (02:28)
[2017-06-27] MEDS: D5W AND 1/2NSS 1,000 ML IV SCH ×2 (06:44→11:30)
[2017-06-27 06:59] LABS: CREATININE 1.2 mg/dl (0.60-1.20)
[2017-06-27] MEDS: LISINOPRIL 20 MG TAB PO SCH (07:59)
[2017-06-27] MEDS ORDERED: ENOXAPARIN 30 MG/0.3 ML SYR SQ SCH (08:00)
--- NOTE | 2017-06-27 08:37 | Anesthesiology Progress Note ---
Anesthesia Post Op Note Date & Time Jun 27, 2017 at 08:37 Vital Signs Vital Signs Past 12 Hours Date Time Temp Pulse Resp B/P (MAP) Pulse Ox O2 Delivery O2 Flow Rate FiO2 06/27/17 06:00 59 17 135/53 (80) 98 Room Air 06/27/17 04:00 Room Air 06/27/17 04:00 36.9 60 16 136/57 (83) 99 Room Air 06/27/17 02:00 59 16 148/63 (91) 97 Room Air 06/27/17 00:01 36.8 59 15 118/47 (70) 96 Room Air 06/26/17 23:59 Room Air 06/26/17 22:00 52 15 128/44 (72) 95 Room Air Notes Mental Status: alert / awake / arousable, participated in evaluation Pt Amnestic to Procedure: Yes Nausea / Vomiting: adequately controlled Pain: adequately controlled Airway Patency, RR, SpO2: stable & adequate BP & HR: stable & adequate Hydration State: stable & adequate Anesthetic Complications: no major complications apparent
[2017-06-27] MEDS ORDERED: ASPIRIN 81 MG ECTAB PO SCH (09:00)
[2017-06-27] MEDS ORDERED: DILTIAZEM HCL (TIAzac) 180 MG CAPCR PO SCH (09:00)
--- NOTE | 2017-06-27 11:39 | Progress Note ---
Progress Note Date of Service: Jun 27, 2017. Subjective No complaints today. Had left finger tingling last pm. Also had headache. She doesnt remember either. Problem List Medical Problems: (1) Tick bite of left upper back excluding scapular region Status: Acute Objective Vital Signs Vital Signs Past 12 Hours Date Time Temp Pulse Resp B/P (MAP) Pulse Ox O2 Delivery O2 Flow Rate FiO2 06/27/17 09:35 36.9 42 16 125/52 (76) 98 Room Air 06/27/17 07:30 98 Room Air 2.0 06/27/17 07:30 36.9 54 17 129/62 (84) 98 Room Air 06/27/17 06:00 59 17 135/53 (80) 98 Room Air 06/27/17 04:00 Room Air 06/27/17 04:00 36.9 60 16 136/57 (83) 99 Room Air 06/27/17 02:00 59 16 148/63 (91) 97 Room Air 06/27/17 00:01 36.8 59 15 118/47 (70) 96 Room Air 06/26/17 23:59 Room Air Exam VSS Afebrile Incision dry and clean Does have some oral dyskinesia No facial droop of cheek, eye for forehead Left hand with good flow Laboratory and Microbiology Results Past 24 Hours Test 06/26/17 16:16 06/27/17 00:04 06/27/17 06:03 06/27/17 06:07 Range/Units Bedside Glucose 177 196 171 70-90 mg/dl Creatinine 1.20 0.60-1.20 mg/dl Est Creatinine Clear Calc Drug Dose 27.3 ml/min Estimated GFR () 49.8 Estimated GFR (Non- 43.0 Microbiology Results 06/26/17 MRSA DNA Surveillance Screen - Final, Complete Specimen Negative for MRSA by DNA Probe Imp: Post CEA Post op headache Perioral dysfunction Plan: Patient had tingling of her left fingers last pm. Also had headache. No problem with either today. She does have oral dysfunction. Not sure if small embolic stroke or marginal mandibular nerve paresis which is more likely. Doing well. Will d/c today.
[2017-06-27] MEDS ORDERED: OXYC-57 PO (11:40)
--- NOTE | 2017-06-27 11:43 | Discharge Instructions ---
Discharge Instructions Date of Service Jun 27, 2017. Admission Reason for Admission: Carotid Stenosis Discharge Discharge Diagnosis / Problem: Post carotid endartectomy Discharge Goals Goal(s): Therapeutic intervention Activity Recommendations Activity Limitations: per Instructions/Follow-up section . Instructions / Follow-Up Instructions / Follow-Up SPECIAL CARE INSTRUCTIONS: Medications: * Continue to take Aspirin as directed. Incision Care: * You may shower, but do not rub incision. You may let the warm soapy water run over it. Be sure to dry the incision well after bathing. * Do not shave directly over the incision until it is healed. * DO NOT IMMERSE THE INCISION IN A TUB/POOL/etc. UNTIL HEALED. Restrictions: * Do not drive for at least one week or if you are still taking any narcotic pain medication. * Do not lift anything heavier than a gallon of milk for one week after going home. Possible Complications: * Numbness - It is normal to have some numbness around the incision. Numbness can extend beyond the incision to areas of the neck, ear and face. The numbness is due to bruising of nerves during the surgery and will gradually improve over a period of months. * Hoarseness/Difficulty Speaking and Swallowing - The bruising of nerves in the neck can also cause a hoarse voice, difficulty speaking or swallowing. This may improve over time, HOWEVER, if it continues for more than a few days please contact our office ([phone]). * Excessive Swelling - There will be some swelling immediately after surgery which usually resolves within one week. If you notice that the swelling is getting worse, notify your surgeon ([phone]). * Drainage/Bleeding - If there is any drainage or bleeding, it should be a very small amount (less than a teaspoon per day). If you have excessive bleeding or drainage from the incision, call your surgeon ([phone]) right away. ACTIVATION OF EMERGENCY MEDICAL SYSTEM: Call 911, immediately, if you experience any of the following: Warning Signs and Symptoms of Stroke: * Sudden numbness or weakness of the face, arm or leg, especially on one side of the body * Sudden confusion, trouble speaking or understanding * Sudden trouble seeing in one or both eyes * Sudden trouble walking, dizziness, loss of balance or coordination * Sudden severe headache with no cause Do not delay calling 911 if you experience any warning signs or symptoms of a stroke. Delay in seeking medical attention may affect what treatments can be given to you. Risk Factors for Stroke: You can reduce your chances of stroke by working with your medical provider to adopt a healthy lifestyle. Some specific ways to lower your chance of stroke are: * If you are a smoker, now is the time to stop smoking cigarettes * If you are diabetic, improve the control of your blood sugars * Avoid excessive amounts of alcohol * Control high blood pressure * Lose weight if you are overweight * Be sure to lead an active lifestyle * Eat a healthy diet low in salt, cholesterol and fat You should know about other risk factors for stroke that you are unable to control. These include: * Age 55 years or older * Male gender * Certain racial groups: , or / * Family History of Stroke, Mini stroke or Heart Attack * Sickle Cell Disease You will be receiving a call from the Vascular Surgery Nurse after you are discharged. FOLLOW UP VISIT: It is important for you to keep your follow up appointments with your medical provider. Keep any scheduled doctor appointments. ACTIVITY RECOMMENDATIONS: See Above SPECIAL CARE INSTRUCTIONS: Call your doctor if: * Temperature above 101 degrees * Pain not relieved by pain medicine ordered * There is increased drainage or redness from any incision * You have any unanswered questions or concerns. Current Hospital Diet Patient's current hospital diet: AHA Diet (Heart Healthy) Discharge Diet Recommended Diet: AHA Diet (Heart Healthy) Procedures Procedures Performed: Right Carotid Endarterectomy with patch Pending Studies Studies pending at discharge: no Medical Emergencies . Who to Call and When: Medical Emergencies: If at any time you feel your situation is an emergency, please call 911 immediately. . Non-Emergent Contact Non-Emergency issues call your: Surgeon . "Provider Documentation" section prepared by Doyle Pepe. . VTE Core Measure Inpt VTE Proph given/why not?: Enoxaparin (Lovenox) [place] Drug Monitoring Program Search Results: no issues identified
--- NOTE | 2017-07-03 10:27 | DISCHARGE SUMMARY ---
ADMISSION DIAGNOSIS: Severe right internal carotid artery stenosis. DISCHARGE DIAGNOSES: 1. Status post right carotid endarterectomy with patch. 2. Severe right internal carotid artery stenosis. DISCHARGE CONDITION: Stable. CONSULTATIONS IN THE HOSPITAL: Included critical care during one night ICU hospital stay. PROCEDURES IN THE HOSPITAL: Included right carotid endarterectomy with patch, which was performed on 06/26/2017 with an EBL of 50 mL and no significant complication. HISTORY OF PRESENT ILLNESS: Ms. Wray is a 81-year-old female with a previous history of a left hemispheric CVA who had previously undergone a left carotid endarterectomy performed by Dr. Pepe a few years ago. She has since been following with Dr. Pepe due to a 60% stenosis of her right internal carotid artery. During a regular surveillance ultrasound, it indicated 90% stenosis which was a significant change from the previous 6 months ultrasound. We ordered a CTA to confirm and this did confirm over 90% stenosis of her internal carotid artery and carotid endarterectomy was then recommended. The procedure, risks, benefits, alternatives were discussed with the patient. She expressed understanding and agreement to proceed. HOSPITAL COURSE: The patient was admitted on 06/26/2017 after undergoing her right carotid endarterectomy and this was performed without significant complications. She had an EBL of 50 mL. Labs and vital signs remained essentially stable. She had a mild right lip droop postoperatively, but no difficulty speaking or swallowing. She was ambulating well and her chronic right hand numbness remained the same. Nursing staff did question whether the patient could have had a CVA due to the mild right lip droop; however, CT scan indicated no new infarct and her carotid artery ultrasound demonstrated a patent endarterectomy site. She was felt to be stable enough for discharge on postop day 1. PHYSICAL EXAMINATION: VITAL SIGNS: On day of discharge, her vital signs were as follows: Pulse of 54, temperature of 37, respiratory rate of 16, blood pressure 132/48 with pulse oximetry of 98% on room air. CONSTITUTIONAL: The patient is a mildly chronically ill-appearing elderly female in no acute distress. She ambulates without assistance and is active, alert and oriented x4. HEAD: Normocephalic and atraumatic. EYES: EOMI, ENMT demonstrates no hearing loss, rhinorrhea or pharyngeal erythema. NECK: Left side of her neck is supple, nontender without any masses. Her right surgical endarterectomy site does demonstrate an incision which is intact with sutures into the skin. There is some mild local ecchymosis, edema and tenderness. There is no erythema and no discharge noted. HEART: Demonstrated a regular rate and rhythm. LUNGS: Decreased, but clear. EXTREMITIES: Peripheral pulses are full and equal in all extremities unless otherwise noted. Specifically, they are in her brachial, radial and femoral pulses. Lower extremity distal pulses are +1. Brisk capillary refill and no sign of distal ischemia. ABDOMEN: Soft, nontender with normoactive bowel sounds in all 4 quadrants without guarding or rebound. There was no flank or CVA tenderness. NEUROLOGIC: She has grossly intact cranial nerves and grossly intact sensation. She has 4/5 metaphysician strength in her right hand, which is chronic from her old CVA and 5/5 strength in her left. She has a slight droop to the right lower portion of her lip, consistent with location of her recent surgery. There is no facial droop or facial paralysis otherwise. She has no other focal neurological deficits. DIET UPON DISCHARGE: Should be a low-cholesterol AHA diet. MEDICATIONS: Reconciled on the chart and are as per her discharge instructions. FOLLOWUP: Should be with Dr. Pepe or his PA, Reanna Cervantes in 2 weeks for reevaluation. She was advised to call the office for any other questions. Thank you for allowing us to participate in the care.
== END 2017-06-27 12:18 | disposition home or self-care (01) | DRG 39 ==
LOC: C.ACU 05:16 → C.MSICU 10:00 → ENRESERV 11:01
PROVIDERS: ADMIT Surgery Vascular Surgery; ATTEND Surgery Vascular Surgery
PROC: 03CM0ZZ Extirpation of Matter from Right External Carotid Artery, Open Approach (ICD-10-PCS; principal; 2017-06-26 07:30)
PROC: 03UK0JZ Supplement Right Internal Carotid Artery with Synthetic Substitute, Open Approach (ICD-10-PCS; principal; 2017-06-26 07:30)
DX: I65.21 Occlusion and stenosis of right carotid artery (principal); G24.9 Dystonia, unspecified; R51 Headache; I73.9 Peripheral vascular disease, unspecified; I12.9 Hypertensive chronic kidney disease with stage 1 through stage 4 chronic kidney disease, or unspecified chronic kidney disease; N18.3 Chronic kidney disease, stage 3 (moderate); E78.5 Hyperlipidemia, unspecified; D64.9 Anemia, unspecified; Z87.891 Personal history of nicotine dependence; Z86.73 Personal history of transient ischemic attack (TIA), and cerebral infarction without residual deficits; Z79.82 Long term (current) use of aspirin; Z79.899 Other long term (current) drug therapy

== ENCOUNTER → 2018-01-07 | Outpatient (CLI) | payer OTHER, BC ==
--- NOTE | 2018-01-07 15:18 | MAMMOGRAPHY REPORT ---
UNILATERAL LEFT DIGITAL SCREENING MAMMOGRAM TOMOSYNTHESIS WITH CAD: 01/07/2018 CLINICAL HISTORY: Asymptomatic. Personal history of breast cancer. TECHNIQUE: Left breast tomosynthesis in addition to standard 2D mammography was performed. Current deepti blackman was also evaluated with a Computer Aided Detection (CAD) system. COMPARISON: Comparison is made to exams dated: 01/04/2017 mammogram, 01/03/2016 mammogram, 01/05/2015 mae mogram, 12/30/2014 mammogram, 12/29/2013 mammogram, and 12/27/2012 mammogram - [facility] . BREAST COMPOSITION: There are scattered areas of fibroglandular density in the left breast. FINDINGS: There are mild vascular calcifications in the left breast. No suspicious mass, architectur al distortion or cluster of microcalcifications is seen. IMPRESSION: ACR BI-RADS CATEGORY 1: NEGATIVE There is no mammographic evidence of malignancy. A 1 year screening mammogram is recommended. The pa tient will receive written notification of the results. Approximately 10% of breast cancers are not detected with mammography. A negative mammographic report should not delay biopsy if a clinically suggestive mass is present. Margie Barrow M.D. ay/:01/07/2018 11:38:29 Engraving Operator: Flory DERAS(Renan)(M), [facility] letter sent: Normal 1/2 BI-RADS Code: ACR BI-RADS Category 1: Negative
== END | disposition home or self-care (01) ==
LOC: C.MAMM 10:25
PROVIDERS: ATTEND Nurse Practitioner Family
DX: Z12.31 Encounter for screening mammogram for malignant neoplasm of breast (principal)

== ENCOUNTER → 2018-02-19 | Outpatient (CLI) | payer OTHER, BC ==
[2018-02-19 09:43] LABS: BASO % 0.1 %; BASO ABS # 0.01 K/uL (0-0.2); EOS % 1.1 %; EOS ABS # 0.08 K/uL (0-0.5); HEMATOCRIT 39.2 % (37-47); HEMOGLOBIN 13.7 g/dL (12.0-16.0); IG# 0.02 K/uL (0.00-0.02); LYMPH % 30.6 %; LYMPH ABS # 2.24 K/uL (1.2-3.4); MEAN CELL VOLUME 89.5 fL (80-100); MEAN CORPUSCULAR HEMOGLOBIN 31.3 pg (25-34); MEAN CORPUSCULAR HGB CONC 34.9 g/dl (32-36); MEAN PLATELET VOLUME 9.4 fL (7.4-10.4); MONO % 7.3 %; MONO ABS # 0.53 K/uL (0.11-0.59); NEUT % 60.6 %; NEUT ABS # 4.43 K/uL (1.4-6.5); PLATELET COUNT 294 K/uL (130-400); RED CELL DISTRIBUTION WIDTH CV 13.5 % (11.5-14.5); RED CELL DISTRIBUTION WIDTH SD 44.4 fL (36.4-46.3); WHITE BLOOD COUNT 7.31 K/uL (4.8-10.8)
[2018-02-19 10:09] LABS: ALT/SGPT 20 U/L (12-78); AST/SGOT 17 U/L (15-37); BLOOD UREA NITROGEN 27 mg/dl (7-18); CALCIUM 9.1 mg/dl (8.5-10.1); CARBON DIOXIDE 24 mmol/L (21-32); CREATININE 1.36 mg/dl (0.60-1.20); GLUCOSE 83 mg/dl (70-99); POTASSIUM 4.3 mmol/L (3.5-5.1); SODIUM 136 mmol/L (136-145)
[2018-02-19 10:13] LABS: ALKALINE PHOSPHATASE 60 U/L (45-117); CHOLESTEROL 186 mg/dl (0-200); LDL CHOLESTEROL CALCULATED 77 mg/dl; TOTAL PROTEIN 7.4 gm/dl (6.4-8.2)
== END | disposition home or self-care (01) ==
LOC: C.LAB1850 08:24
PROVIDERS: ATTEND Nurse Practitioner Family
DX: E78.00 Pure hypercholesterolemia, unspecified (principal); I10 Essential (primary) hypertension; N18.3 Chronic kidney disease, stage 3 (moderate); M85.80 Other specified disorders of bone density and structure, unspecified site; E55.9 Vitamin D deficiency, unspecified

== ENCOUNTER 2018-03-10 14:30 | Emergency (ER) | payer OTHER, BC ==
[~2018-03-10] VITALS: Ht 147.3 cm; Wt 51.0 kg
[2018-03-10 14:42] VITALS: TEMP 36.5; Ht 147.3 cm; Wt 51.0 kg
[2018-03-10] MEDS ORDERED: DiphenhydrAMINE 2%/ZINC 0.1% CREAM 28GM TUBE EXT STA (15:04)
[2018-03-10] MEDS ORDERED: PRED20TA PO (15:07)
[2018-03-10] MEDS ORDERED: CLOP1TAB15 PO (15:18)
[2018-03-10] MEDS ORDERED: HYDR-4716 PO (15:18)
[2018-03-10 15:41] VITALS: BP 125/64; PULSE 64; O2SAT 100
--- NOTE | 2018-03-10 15:59 | EMERGENCY ROOM VISIT NOTE ---
History Report prepared by Diane: Deangelo Rossi Under the Supervision of: Dr. Maximino aGrcias M.D. First contact with patient: 14:53 Chief Complaint: RASH Stated Complaint: RASH ON RIGHT UPPER ARM History of Present Illness The patient is an 82 year old female who presents to the Emergency Room with complaints of a worsening rash on her left flank and right bicep. The patient states that she was doing yard work a few days ago, and she got this rash. She notes that the rash is sore and red. The patient states that no other areas on her body have a rash or are itchy. She reports that she did not feel anything bite her. The patient states that she is allergic to penicillin. She denies any fever or chills, chest pain, nausea, vomiting. The patient has no history of diabetes. Source of History: patient Onset: a few days ago Position: arm (right), other (left flank) Quality: other (rash) Timing: worsening Associated Symptoms: No fevers, No chills Review of Systems See HPI for pertinent positives and negatives. A total of 6 systems were reviewed and were otherwise negative. Past Medical & Surgical Medical Problems: (1) Atrial Fibrillation (2) Breast cancer (3) Esophageal Reflux (4) Hyperlipidemia Nec/Nos (5) Hypertension (6) Hypertension Nos (7) Stenosis of right carotid artery without infarction Family History Cancer Diabetes mellitus Gallbladder disease Hypertension Lung disease Social History Smoking Status: Former Smoker Alcohol Use: none Drug Use: none Marital Status: Housing Status: lives with significant other Occupation Status: retired Current/Historical Medications Scheduled Aspirin (Aspirin Ec), 81 MG PO QAM Clopidogrel (Plavix), 75 MG PO DAILY Diltiazem Hcl Extended Release (Tiazac 360 Mg), 360 MG PO QAM Hydralazine HCl (Hydralazine HCl), 25 MG PO DAILY Lisinopril (Lisinopril), 40 MG PO BID Prednisone (Prednisone), 20 MG PO DAILY Simvastatin (Zocor), 20 MG PO Q2D Allergies Coded Allergies: Penicillins (Verified Allergy, Intermediate, "swelling" (pt does not remember where), 03/10/18) Physical Exam Vital Signs Date Time Temp Pulse Resp B/P (MAP) Pulse Ox O2 Delivery O2 Flow Rate FiO2 03/10/18 14:42 36.5 56 20 127/59 100 Room Air Physical Exam GENERAL: Awake, alert, well-appearing, in no distress HENT: Normocephalic, atraumatic. Oropharynx unremarkable. EYES: Normal conjunctiva. Sclera non-icteric. NECK: Supple. No nuchal rigidity. FROM. No masses. RESPIRATORY: Clear to auscultation. No wheezes. No rales. Normal respiratory effort. CARDIAC: Normal rate. Normal rhythm. No murmurs. No rubs. Extremities warm and well perfused. Pulses equal. No JVD. MUSCULOSKELETAL: Atraumatic. Chest examination reveals no tenderness. The back is symmetrical on inspection without obvious abnormality. There is no CVA tenderness to palpation. No joint edema. NEURO: Normal sensorium. No sensory or motor deficits noted. SKIN: Erythematous patch and swelling on the right bicep and left flank with some induration. No fluctuance. No signs of cellulitis. There is a small scab on the left flank. No jaundice noted. Medical Decision & Procedures Medications Administered Medications (Trade) Dose Ordered Sig/Gunjan Route Start Time Stop Time Status Last Admin Dose Admin Prednisone (PredniSONE TAB) 40 mg NOW STAT PO 03/10/18 15:04 03/10/18 15:07 DC 03/10/18 15:37 40 MG Diphenhydramine HCl (Benadryl Extra Strength Cream) 1 appln NOW STAT EXT 03/10/18 15:04 03/10/18 15:07 DC 03/10/18 15:37 1 APPLN ED Course 1453: The patient was evaluated in room D6. A complete history and physical exam was performed. I discussed the discharge instructions with the patient, and she will be discharged home. 1504: Benadryl Extra Strength Cream 1 appln EXT, Prednisone 40mg PO Medical Decision Prior records/ancillary studies reviewed. Triage Nursing notes reviewed and agree them. Additional history obtained from the family. The patient's history was concerning for a rash. Differential diagnosis: Etiologies such as contact dermatitis, urticaria, allergic reaction,Johnson- John syndrome, toxic epidermal necrolysis, erythema multiforme, cellulitis, scabies, HSV, varicella, zoster, eczema, staph scalded skin syndrome, viral exanthem, fungal infection, as well as others were entertained. Physical examination: As above. No signs of cellulitis. Swelling and redness noted to the right bicep and left flank. ER treatment provided: Oral prednisone Topical Benadryl cream Diagnostic interpretation by me: Deferred The etiology for the patient's rash is not clearly evident at this time. It looks most consistent with a contact dermatitis. By the evaluation outlined above emergent etiologies such as Johnson-John syndrome, toxic epidermal necrolysis, erythema multiforme, cellulitis, scabies, HSV, varicella, zoster, staph scalded skin syndrome, urticaria, allergic reaction, as well as others were deemed relatively unlikely. The patient informed about the findings as listed above. All questions were answered and she was pleased with the treatment. Return instructions were outlined and the patient was discharged in stable condition. Outpatient prescription management: Prednisone Referral: The patient was referred back to her primary care physician for follow-up in 2- 3 days for a recheck of the current condition. Medication Reconcilliation Current Medication List: was personally reviewed by me Blood Pressure Screening Patient's blood pressure: Normal blood pressure Impression Primary Impression: Rash Scribe Attestation The scribe's documentation has been prepared under my direction and personally reviewed by me in its entirety. I confirm that the note above accurately reflects all work, treatment, procedures, and medical decision making performed by me. Departure Information Dispostion Home / Self-Care Prescriptions Prednisone (Prednisone) 20 Mg Tab 20 MG PO DAILY, #3 TAB Prov: Maximino Garcias MD 03/10/18 Referrals Jaleel Murphy III, CRNP (PCP) Forms HOME CARE DOCUMENTATION FORM, IMPORTANT VISIT INFORMATION, WORK / SCHOOL INSTRUCTIONS Patient Instructions My [facility] Additional Instructions Prednisone 20 mg daily for 3 days. Benadryl cream to the affected areas 3-4 times daily as needed for itching. Ice compresses to the area for 10-15 minutes 3-4 times a day for the next 2 days. Return to the emergency department for worsening rash, fever, puslike drainage, severe pain, or as needed. Follow-up with your primary care physician this week. Call the office tomorrow for an appointment.
== END 2018-03-10 15:44 | disposition home or self-care (01) ==
LOC: C.EDB 14:31 → C.EDD 15:44
DX: R21 Rash and other nonspecific skin eruption (principal); I48.91 Unspecified atrial fibrillation; K21.9 Gastro-esophageal reflux disease without esophagitis; E78.5 Hyperlipidemia, unspecified; I10 Essential (primary) hypertension; Z87.891 Personal history of nicotine dependence; Z88.0 Allergy status to penicillin

== ENCOUNTER → 2018-05-16 | Outpatient (CLI) | payer OTHER, BC ==
[~2018-05-16] MED LIST changes: +APR25 PO; +CLOP1TAB15 PO; +HYDR-4716 PO; +LISI-726 PO; -LSN20 PO; +PLV75 PO; +PRED20TA PO; +SIMV-151 PO
[2018-05-16 14:45] LABS: ALBUMIN 3.9 gm/dl (3.4-5.0); BLOOD UREA NITROGEN 23 mg/dl (7-18); CALCIUM 8.6 mg/dl (8.5-10.1); CARBON DIOXIDE 23 mmol/L (21-32); CREATININE 1.47 mg/dl (0.60-1.20); GLUCOSE 107 mg/dl (70-99); PHOSPHORUS 3.9 mg/dl (2.5-4.9); POTASSIUM 4.2 mmol/L (3.5-5.1); SODIUM 142 mmol/L (136-145)
== END | disposition home or self-care (01) ==
LOC: C.LAB1850 13:09
PROVIDERS: ATTEND Internal Medicine Nephrology
DX: N18.3 Chronic kidney disease, stage 3 (moderate) (principal)

== ENCOUNTER → 2018-05-21 | Outpatient (CLI) | payer OTHER, BC | END | disposition home or self-care (01) | LOC: C.LAB 10:48 | PROVIDERS: ATTEND Nurse Practitioner Family | DX: I10 Essential (primary) hypertension (principal) ==

== ENCOUNTER 2018-05-22 18:10 | Inpatient (IN) | payer OTHER, BC ==
[~2018-05-22] VITALS: Ht 149.9 cm; Wt 49.3 kg
[~2018-05-22 18:10] MED LIST changes: -APR25 PO; -PLV75 PO; -SIMV-151 PO
[2018-05-22] MEDS ORDERED: ACETAMINOPHEN 500 MG TAB PO STA (18:33)
[2018-05-22 18:53] LABS: BASO % 0.1 %; BASO ABS # 0.01 K/uL (0-0.2); EOS % 0.9 %; EOS ABS # 0.06 K/uL (0-0.5); HEMATOCRIT 37.4 % (37-47); HEMOGLOBIN 12.8 g/dL (12.0-16.0); IG# 0.01 K/uL (0.00-0.02); LYMPH % 37.1 %; LYMPH ABS # 2.51 K/uL (1.2-3.4); MEAN CELL VOLUME 86.8 fL (80-100); MEAN CORPUSCULAR HEMOGLOBIN 29.7 pg (25-34); MEAN CORPUSCULAR HGB CONC 34.2 g/dl (32-36); MEAN PLATELET VOLUME 9.1 fL (7.4-10.4); MONO % 7.7 %; MONO ABS # 0.52 K/uL (0.11-0.59); NEUT % 54.1 %; NEUT ABS # 3.66 K/uL (1.4-6.5); PLATELET COUNT 279 K/uL (130-400); RED CELL DISTRIBUTION WIDTH CV 12.6 % (11.5-14.5); RED CELL DISTRIBUTION WIDTH SD 40.7 fL (36.4-46.3); WHITE BLOOD COUNT 6.77 K/uL (4.8-10.8)
[2018-05-22] MEDS ORDERED: PLV75 PO ×2 (18:58)
[2018-05-22] MEDS ORDERED: APR25 PO ×2 (18:58)
[2018-05-22] MEDS ORDERED: SIMV-151 PO ×2 (18:58)
--- NOTE | 2018-05-22 19:04 | DIAGNOSTIC IMAGING REPORT ---
CHEST ONE VIEW PORTABLE HISTORY: 82 years-old Female htn acute hypertension COMPARISON: Chest radiograph 06/08/2017 TECHNIQUE: Portable AP view of the chest FINDINGS: Cardiomediastinal and hilar silhouettes are within normal limits. Calcification of the aorta. Linear subsegmental left basilar opacities suggest atelectasis. There is no pneumothorax, pleural effusion or overt pulmonary edema. Periarticular calcifications about the bilateral shoulders suggests calcific tendinosis or calcific bursitis. Degenerative changes of the shoulders and spine. IMPRESSION: No acute process. The above report was generated using voice recognition software. It may contain grammatical, syntax or spelling errors. Electronically signed by: Feliz Jesus M.D. 05/22/2018 7:03 PM Dictated Date/Time: 05/22/2018 7:02 PM
[2018-05-22 19:09] LABS: CALCIUM 8.9 mg/dl (8.5-10.1); CREATININE 1.03 mg/dl (0.60-1.20); POTASSIUM 3.5 mmol/L (3.5-5.1)
--- NOTE | 2018-05-22 19:11 | DIAGNOSTIC IMAGING REPORT ---
HEAD WITHOUT CONTRAST (CT) CLINICAL HISTORY: 82 years-old Female with GRIFFITH . Acute headache TECHNIQUE: Multiple axial CT images of the head were obtained without contrast. A dose lowering technique was utilized adhering to the principles of ALARA. CT DOSE: 537.48 mGy.cm COMPARISON: CT head 06/26/2017. FINDINGS: No acute intracranial hemorrhage, midline shift, intracranial mass, hydrocephalus, territorial ischemia or abnormal extra-axial collection. Age-related involutional changes. Patchy areas of low-attenuation throughout the white matter redemonstrated suggesting chronic microvascular ischemic changes. Remote appearing lacunar infarction about the left caudate head. The calvarium is intact. The paranasal sinuses, mastoid air cells, and middle ear cavities are clear. IMPRESSION: No acute intracranial abnormality. The above report was generated using voice recognition software. It may contain grammatical, syntax or spelling errors. Electronically signed by: Feliz Jesus M.D. 05/22/2018 7:10 PM Dictated Date/Time: 05/22/2018 7:07 PM
[2018-05-22 20:38] LABS: ALBUMIN 4.3 gm/dl (3.4-5.0); TOTAL PROTEIN 7.4 gm/dl (6.4-8.2)
[2018-05-22] MEDS ORDERED: SODIUM CHLORIDE 0.9% 500ML 500 ML IV STA (20:47)
[2018-05-22] MEDS ORDERED: ACETAMINOPHEN 500 MG TAB ONE (21:10)
[2018-05-22] MEDS ORDERED: ONDANSETRON INJ 2 MG/ML 2 ML VIAL IV PRN (21:15)
[2018-05-22] MEDS ORDERED: MAGNESIUM HYDROXIDE SUSP 30 ML UDC PO PRN (21:15)
[2018-05-22] MEDS ORDERED: ACETAMINOPHEN 325 MG TAB PO PRN (21:15)
[2018-05-22] MEDS ORDERED: POLYETHYLENE (MIRALAX) 17 GM PACK PO PRN (21:15)
[2018-05-22] MEDS ORDERED: ENOXAPARIN 40 MG/0.4 ML SYR SQ SCH (21:15)
[2018-05-22] MEDS ORDERED: ALUMINUM/MAGNESIUM/SIMETH (MAALOX MAX) 30 ML UDC PO PRN (21:15)
--- NOTE | 2018-05-22 21:36 | History and Physical ---
History & Physical Date & Time of Service: May 22, 2018 at 21:25 Chief Complaint: HPB Primary Care Physician: Jaleel Murphy III, CRNP History of Present Illness Source: patient, family, hospital records 82y/oF with hx of L hemispheric CVA, TIAs, bilateral carotid artery stenosis s/ p b/l carotid endarterectomy, HTN, HLD, and breast cancer presented with worsening headache that started this afternoon. Headache was 7/10 and has improved to 2/10 now; pounding in forehead region and intermitted. Pt reports high BP with the headache of 200s. Thinks she was dizzy earlier today as well but not exactly sure. Not sure if she took her BP meds this AM. Denies any dizziness now, vision changes, cp, sob, abdominal pain, n/v, d/c, or dysuria. She has felt fine using the bathroom and moving around while in the ED Per son, pt has been having memory issues for a long time now. Pt's eyes look red to him as well ED interval hx: received 1L NS and tylenol 1g PO Past Medical/Surgical History Medical Problems: (1) Alcohol abuse with intoxication (2) Altered mental status (3) Altered mental status (4) Arthritis of hand, right (5) Atrial Fibrillation (6) Breast cancer (7) Carotid stenosis (8) Carotid stenosis, symptomatic, with infarction (9) Esophageal Reflux (10) Hyperlipidemia Nec/Nos (11) Hypertension (12) Hypertension Nos (13) Hyponatremia (14) Injury of right hand (15) Neuropathic pain of hand (16) Neuropathic pain of hand (17) Rash (18) Stenosis of right carotid artery without infarction (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 (20) Sunburn (21) Tick bite (22) Tick bite (23) Tick bite of left upper back excluding scapular region Family History Cancer Diabetes mellitus Gallbladder disease Hypertension Lung disease Social History Smoking Status: Never Smoker Smokeless Tobacco Use: No Alcohol Use: socially Drug Use: none Marital Status: Occupational Status: retired Immunizations History of Influenza Vaccine: Yes Influenza Vaccine Date: Jul 05, 2011 History of Tetanus Vaccine?: Yes History of Pneumococcal: Yes Pneumococcal Date: Aug 26, 2010 History of Hepatitis B Vaccine: Unknown Allergies Coded Allergies: Penicillins (Verified Allergy, Intermediate, "swelling" (pt does not remember where), 03/10/18) Home Medications Scheduled Aspirin (Aspirin Ec), 81 MG PO QAM Clopidogrel Bisulfate (Clopidogrel), 75 MG PO DAILY Diltiazem Hcl Extended Release (Tiazac 360 Mg), 360 MG PO QAM Hydralazine Hcl (Apresoline), 25 MG PO TID Lisinopril (Lisinopril), 20 MG PO AMHS Simvastatin (Simvastatin), 20 MG PO Q2D Review of Systems Constitutional: No fever, No chills Respiratory: No shortness of breath Cardiovascular: No chest pain Abdomen: No pain, No nausea, No vomiting, No diarrhea, No constipation Genitourinary - Female: No dysuria Neurologic: + problem reported (GRIFFITH ) Physical Exam Vital Signs Date Time Temp Pulse Resp B/P (MAP) Pulse Ox O2 Delivery O2 Flow Rate FiO2 05/22/18 19:58 178/92 05/22/18 18:15 36.8 70 18 205/79 97 Room Air General Appearance: no apparent distress Head: normocephalic, atraumatic Eyes: PERRL, + abnormal sclerae exam (injected) ENT: hearing grossly normal Respiratory/Chest: lungs clear, normal breath sounds, no respiratory distress Cardiovascular: regular rate, rhythm, + pertinent finding (2/6 systolic murmur) Abdomen/GI: normal bowel sounds, non tender, soft Back: normal inspection Extremities/Musculoskelatal: normal inspection, no calf tenderness, no pedal edema Neurologic/Psych: alert Diagnostics Laboratory Results Results Past 24 Hours Test 05/22/18 18:42 05/22/18 19:11 Range/Units White Blood Count 6.77 4.8-10.8 K/uL Red Blood Count 4.31 4.2-5.4 M/uL Hemoglobin 12.8 12.0-16.0 g/dL Hematocrit 37.4 37-47 % Mean Corpuscular Volume 86.8 80-100 fL Mean Corpuscular Hemoglobin 29.7 25-34 pg Mean Corpuscular Hemoglobin Concent 34.2 32-36 g/dl Platelet Count 279 130-400 K/uL Mean Platelet Volume 9.1 7.4-10.4 fL Neutrophils (%) (Auto) 54.1 % Lymphocytes (%) (Auto) 37.1 % Monocytes (%) (Auto) 7.7 % Eosinophils (%) (Auto) 0.9 % Basophils (%) (Auto) 0.1 % Neutrophils # (Auto) 3.66 1.4-6.5 K/uL Lymphocytes # (Auto) 2.51 1.2-3.4 K/uL Monocytes # (Auto) 0.52 0.11-0.59 K/uL Eosinophils # (Auto) 0.06 0-0.5 K/uL Basophils # (Auto) 0.01 0-0.2 K/uL RDW Standard Deviation 40.7 36.4-46.3 fL RDW Coefficient of Variation 12.6 11.5-14.5 % Immature Granulocyte % (Auto) 0.1 % Immature Granulocyte # (Auto) 0.01 0.00-0.02 K/uL Sodium Level 123 136-145 mmol/L Potassium Level 3.5 3.5-5.1 mmol/L Chloride Level 89 98-107 mmol/L Carbon Dioxide Level 23 21-32 mmol/L Anion Gap 11.0 3-11 mmol/L Blood Urea Nitrogen 13 7-18 mg/dl Creatinine 1.03 0.60-1.20 mg/dl Est Creatinine Clear Calc Drug Dose 29.7 ml/min Estimated GFR () 59.5 Estimated GFR (Non- 51.3 BUN/Creatinine Ratio 12.6 10-20 Random Glucose 93 70-99 mg/dl Calcium Level 8.9 8.5-10.1 mg/dl Total Bilirubin 0.8 0.2-1 mg/dl Direct Bilirubin 0.2 0-0.2 mg/dl Aspartate Amino Transf (AST/SGOT) 22 15-37 U/L Alanine Aminotransferase (ALT/SGPT) 19 12-78 U/L Alkaline Phosphatase 53 45-117 U/L Total Protein 7.4 6.4-8.2 gm/dl Albumin 4.3 3.4-5.0 gm/dl Ethyl Alcohol mg/dL < 3.0 0-3 mg/dl Diagnostic Radiology CHEST ONE VIEW PORTABLE HISTORY: 82 years-old Female htn acute hypertension COMPARISON: Chest radiograph 06/08/2017 TECHNIQUE: Portable AP view of the chest FINDINGS: Cardiomediastinal and hilar silhouettes are within normal limits. Calcification of the aorta. Linear subsegmental left basilar opacities suggest atelectasis. There is no pneumothorax, pleural effusion or overt pulmonary edema. Periarticular calcifications about the bilateral shoulders suggests calcific tendinosis or calcific bursitis. Degenerative changes of the shoulders and spine. IMPRESSION: No acute process. HEAD WITHOUT CONTRAST (CT) CLINICAL HISTORY: 82 years-old Female with GRIFFITH . Acute headache TECHNIQUE: Multiple axial CT images of the head were obtained without contrast. A dose lowering technique was utilized adhering to the principles of ALARA. CT DOSE: 537.48 mGy.cm COMPARISON: CT head 06/26/2017. FINDINGS: No acute intracranial hemorrhage, midline shift, intracranial mass, hydrocephalus, territorial ischemia or abnormal extra-axial collection. Age-related involutional changes. Patchy areas of low-attenuation throughout the white matter redemonstrated suggesting chronic microvascular ischemic changes. Remote appearing lacunar infarction about the left caudate head. The calvarium is intact. The paranasal sinuses, mastoid air cells, and middle ear cavities are clear. IMPRESSION: No acute intracranial abnormality. EKG 68 NSR QTC 450 Impression Assessment and Plan 82y/oF with hx of L hemispheric CVA, TIAs, bilateral carotid artery stenosis s/ p b/l carotid endarterectomy, HTN, HLD, hx of alcohol abuse, and breast cancer presented with worsening headache that started this afternoon. Now improved s/p 1L NS and 1g PO Tylenol. Head CT negative. Found to have hyponatremia to 123. Not on HCTZ or loop diuretic. Pt is euvolemic without any hx or concern for HF. Concerning for possible beer potomania vs. SIADH vs. hypothyroidism vs. adrenal insufficiency. Headache - improving - CT head - neg - Received Tylenol 1gm PO - Continue Tylenol PRN Hyponatremia - Na 123 - CXR neg - Ordered serum and urine osmolality - Ordered TSH and AM cortisol - Received 1L NS in the ED - On mIVF NS at 80mls/hr HTN/HLD/CAD - Continue lisinopril, diltiazem, and hydralazine - Continue aspirin and clopidogrel - Continue simvastatin Alcohol abuse - LFT wnl - Ordered thiamine PO - Ordered folic acid 1mg QAM - will monitor for withdrawal on AWSS protocol with Ativan DVT prop: Heparin SQ Full code Attending addendum: I have physically seen this patient, have supervised the medical residents activities, and agree with the H&P unless as otherwise noted. Assessment and Plan: Hyponatremia-- Sodium level 123, urine osmolality 178, serum osmolality 251. 1500 cc fluid restriction. ETOH abuse-- add thiamine folic acid and nephrocaps. alcohol withdrawal program. Hypertension/CAD-- Continue diltiazem, hydralazine and lisinopril. Continue aspirin and clopidogrel. Hyperlipidemia-- continue simvastatin. Remainder of orders and notes as above. Advanced Directives Existing Advance Directive: No Existing Living Will: No Existing Power of Welding Setter: No Resuscitation Status VTE Prophylaxis Will order VTE Prophylaxis: Yes Social Service Consult None Apply Resident Involvement: Resident Care Provided Care Provided: Adult Hospital Medicine
[2018-05-22] MEDS ORDERED: LORAZEPAM 2 MG/ML 1 ML VIAL IV PRN (21:45)
[2018-05-22 23:30] VITALS: BP 205/75; PULSE 65; TEMP 36.6; O2SAT 97; Ht 149.9 cm; Wt 49.3 kg
[2018-05-23] VITALS (7 sets, daily range): BP systolic 105–185; BP diastolic 68–94; PULSE 61–97; TEMP 36.9–37; O2SAT 92–98
--- NOTE | 2018-05-23 00:12 | EMERGENCY ROOM VISIT NOTE ---
History Report prepared by Diane: Vishnu Vickers Under the Supervision of: Dr. Neville Warren D.O. First contact with patient: 18:19 Chief Complaint: HYPERTENSION Stated Complaint: HPB History of Present Illness The patient is a 82 year old female who presents to the Emergency Room with complaints of a worsening headache that began 90 minutes ago. She describes the pain as a pounding sensation in her forehead region. The patient states it is not the worst headache of her life and reports it is not as severe as a 7/10 in severity. She states that since the onset, she believes the pain may have become slightly worse. She notes that she does not typically experience headaches. The patient states that after developing her headache, she checked her blood pressure. She notes that her blood pressure was "pa high". The patient denies change in vision, fevers, chest pain, shortness of breath, nausea , vomiting, numbness, lower extremity swelling, diarrhea, pain with urination, and melena. The patient reports she is unsure if she took her medications today. The patient's son notes that the patient does have memory issues at baseline. Source of History: patient, family Onset: 90 minutes ago Position: head (forehead region) Quality: other (pounding) Timing: worsening Associated Symptoms: No fevers, No chest pain, No SOB, No nausea, No vomiting, No melena, No urinary symptoms, No numbness Note: Associated symptoms: hypertension Denies: change in vision, lower extremity swelling Review of Systems See HPI for pertinent positives & negatives. A total of 10 systems reviewed and were otherwise negative. 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 Family History Cancer Diabetes mellitus Gallbladder disease Hypertension Lung disease Social History Smoking Status: Never Smoker Alcohol Use: none Drug Use: none Marital Status: Housing Status: lives with significant other Occupation Status: retired Current/Historical Medications Scheduled Aspirin (Aspirin Ec), 81 MG PO QAM Clopidogrel Bisulfate (Clopidogrel), 75 MG PO DAILY Diltiazem Hcl Extended Release (Tiazac 360 Mg), 360 MG PO QAM Hydralazine Hcl (Apresoline), 25 MG PO TID Lisinopril (Lisinopril), 20 MG PO AMHS Simvastatin (Simvastatin), 20 MG PO Q2D Allergies Coded Allergies: Penicillins (Verified Allergy, Intermediate, "swelling" (pt does not remember where), 03/10/18) Physical Exam Vital Signs Date Time Temp Pulse Resp B/P (MAP) Pulse Ox O2 Delivery O2 Flow Rate FiO2 05/22/18 21:16 68 18 187/87 97 Room Air 05/22/18 19:58 178/92 05/22/18 18:15 36.8 70 18 205/79 97 Room Air Physical Exam GENERAL: Sitting up in bed, alert, well appearing, well nourished, no distress, non-toxic EYE EXAM: normal conjunctiva. PERRL and EOM's intact. OROPHARYNX: no exudate, no erythema, lips, buccal mucosa, and tongue normal and mucous membranes are moist NECK: supple, no nuchal rigidity, no adenopathy, non-tender LUNGS: Clear to auscultation. Normal chest wall mechanics HEART: Systolic ejection murmur, S1 normal and S2 normal ABDOMEN: abdomen soft, non-tender, normo-active bowel sounds, no masses, no rebound or guarding. BACK: Back is symmetrical on inspection and there is no deformity, no midline tenderness, no CVA tenderness. SKIN: no rashes and no bruising UPPER EXTREMITIES: upper extremities are grossly normal. LOWER EXTREMITIES: No pitting edema. NEURO EXAM: Awake, alert, and oriented to person, place, but not year. Does not remember taking medications baseline per family. cranial nerves II-XII intact, normal speech, no weakness of arms, no weakness of legs. No drift. Finger to nose intact. Gross sensation intact. Ambulated without difficulty. Medical Decision & Procedures ER Provider Diagnostic Interpretation: Radiology results as stated below per my review and the radiologist's interpretation: HEAD WITHOUT CONTRAST (CT) CLINICAL HISTORY: 82 years-old Female with GRIFFITH . Acute headache TECHNIQUE: Multiple axial CT images of the head were obtained without contrast. A dose lowering technique was utilized adhering to the principles of ALARA. CT DOSE: 537.48 mGy.cm COMPARISON: CT head 06/26/2017. FINDINGS: No acute intracranial hemorrhage, midline shift, intracranial mass, hydrocephalus, territorial ischemia or abnormal extra-axial collection. Age-related involutional changes. Patchy areas of low-attenuation throughout the white matter redemonstrated suggesting chronic microvascular ischemic changes. Remote appearing lacunar infarction about the left caudate head. The calvarium is intact. The paranasal sinuses, mastoid air cells, and middle ear cavities are clear. IMPRESSION: No acute intracranial abnormality. The above report was generated using voice recognition software. It may contain grammatical, syntax or spelling errors. Electronically signed by: Feliz Jesus M.D. 05/22/2018 7:10 PM Dictated Date/Time: 05/22/2018 7:07 PM CHEST ONE VIEW PORTABLE HISTORY: 82 years-old Female htn acute hypertension COMPARISON: Chest radiograph 06/08/2017 TECHNIQUE: Portable AP view of the chest FINDINGS: Cardiomediastinal and hilar silhouettes are within normal limits. Calcification of the aorta. Linear subsegmental left basilar opacities suggest atelectasis. There is no pneumothorax, pleural effusion or overt pulmonary edema. Periarticular calcifications about the bilateral shoulders suggests calcific tendinosis or calcific bursitis. Degenerative changes of the shoulders and spine. IMPRESSION: No acute process. The above report was generated using voice recognition software. It may contain grammatical, syntax or spelling errors. Electronically signed by: Feliz Jesus M.D. 05/22/2018 7:03 PM Dictated Date/Time: 05/22/2018 7:02 PM Laboratory Results 05/22/18 18:42 Red Blood Count 4.31, Mean Corpuscular Volume 86.8, Mean Corpuscular Hemoglobin 29.7, Mean Corpuscular Hemoglobin Concent 34.2, Mean Platelet Volume 9.1, Neutrophils (%) (Auto) 54.1, Lymphocytes (%) (Auto) 37.1, Monocytes (%) (Auto) 7.7, Eosinophils (%) (Auto) 0.9, Basophils (%) (Auto) 0.1, Neutrophils # (Auto) 3.66, Lymphocytes # (Auto) 2.51, Monocytes # (Auto) 0.52, Eosinophils # (Auto) 0.06, Basophils # (Auto) 0.01 05/22/18 18:42 Test 05/22/18 18:42 05/22/18 19:11 White Blood Count 6.77 K/uL (4.8-10.8) Red Blood Count 4.31 M/uL (4.2-5.4) Hemoglobin 12.8 g/dL (12.0-16.0) Hematocrit 37.4 % (37-47) Mean Corpuscular Volume 86.8 fL (80-100) Mean Corpuscular Hemoglobin 29.7 pg (25-34) Mean Corpuscular Hemoglobin Concent 34.2 g/dl (32-36) Platelet Count 279 K/uL (130-400) Mean Platelet Volume 9.1 fL (7.4-10.4) Neutrophils (%) (Auto) 54.1 % Lymphocytes (%) (Auto) 37.1 % Monocytes (%) (Auto) 7.7 % Eosinophils (%) (Auto) 0.9 % Basophils (%) (Auto) 0.1 % Neutrophils # (Auto) 3.66 K/uL (1.4-6.5) Lymphocytes # (Auto) 2.51 K/uL (1.2-3.4) Monocytes # (Auto) 0.52 K/uL (0.11-0.59) Eosinophils # (Auto) 0.06 K/uL (0-0.5) Basophils # (Auto) 0.01 K/uL (0-0.2) RDW Standard Deviation 40.7 fL (36.4-46.3) RDW Coefficient of Variation 12.6 % (11.5-14.5) Immature Granulocyte % (Auto) 0.1 % Immature Granulocyte # (Auto) 0.01 K/uL (0.00-0.02) Anion Gap 11.0 mmol/L (3-11) Est Creatinine Clear Calc Drug Dose 29.7 ml/min Estimated GFR () 59.5 Estimated GFR (Non- 51.3 BUN/Creatinine Ratio 12.6 (10-20) Osmolality 251 mOsm/kg (280-300) Calcium Level 8.9 mg/dl (8.5-10.1) Total Bilirubin 0.8 mg/dl (0.2-1) Direct Bilirubin 0.2 mg/dl (0-0.2) Aspartate Amino Transf (AST/SGOT) 22 U/L (15-37) Alanine Aminotransferase (ALT/SGPT) 19 U/L (12-78) Alkaline Phosphatase 53 U/L (45-117) Total Protein 7.4 gm/dl (6.4-8.2) Albumin 4.3 gm/dl (3.4-5.0) Ethyl Alcohol mg/dL < 3.0 mg/dl (0-3) Laboratory results per my review. Medications Administered Medications (Trade) Dose Ordered Sig/Gunjan Route Start Time Stop Time Status Last Admin Dose Admin Acetaminophen (Tylenol Tab) 1,000 mg NOW STAT PO 05/22/18 18:33 05/22/18 18:34 DC 05/22/18 21:12 1,000 MG Sodium Chloride 500 ml @ 999 mls/hr Q31M STAT IV 05/22/18 20:47 05/22/18 21:17 DC 05/22/18 21:14 999 MLS/HR ECG Per My Interpretation Indication: other (Hypertension) Rate (beats per minute): 68 Rhythm: sinus rhythm Findings: RBBB (incomplete), other (Normal axis, No PVCs) ED Course ED COURSE: Vital signs were reviewed and showed hypertension The patients medical record was reviewed The above diagnostic studies were performed and reviewed. ED treatments and interventions as stated above. 0: The patient was evaluated in room B06. A complete history and physical examination was performed. 1832: Ordered Tylenol Tab 1000 mg PO. 1950: I reevaluated the patient and updated her. Her blood pressure is down to 170s. 2046: Ordered Sodium Chloride 500 ml @ 999 mls/hr IV. 2050: Upon reevaluation, the patient is resting comfortably. I discussed my findings with the patient and she understands and agrees with the treatment plan. Based on the patients age, coexisting illnesses, exam and lab findings the decision to treat as an inpatient was made. The patient remained stable while under my care. The patient will be evaluated for further management. 2124: I discussed the patients case with Dr. Rod, [facility] Hospitalist. He understands the patients condition and agrees to accept the patient. The patient will be evaluated for further management and care. Medical Decision Differential diagnosis benign hypertension, hypertensive emergency, cardiovascular pathology, pheochromocytoma, electrolyte abnormality, renal disease, endorgan damage, as well as others were entertained. Patient is an 82-year-old female who presents the ER for an elevated blood pressure. Patient has no other complaints at this time. She does have dementia. Patient does not remember taking her medications and son notes that this is baseline. CBC and BMP were obtained. She was given her oral dose of her hydralazine that she normally takes. Sodium was 123. This is down from 140. Patient was given fluids and was discussed with internal medicine for observation for hyponatremia. Medication Reconcilliation Current Medication List: was personally reviewed by me Blood Pressure Screening Patient's blood pressure: Elevated blood pressure Referred to Hospitalist Consults Time Called: 2052 Consulting Physician: Dr. Rod [facility] Hospitalist Returned Call: [phone] I discussed the patients case with Dr. Rod [facility] Hospitalist. He understands the patients condition and agrees to accept the patient. The patient will be evaluated for further management and care. Impression Primary Impression: Hyponatremia Additional Impression: Hypertension Scribe Attestation The scribe's documentation has been prepared under my direction and personally reviewed by me in its entirety. I confirm that the note above accurately reflects all work, treatment, procedures, and medical decision making performed by me. Departure Information Dispostion Being Evaluated By Hospitalist Referrals Jaleel Murphy III, CRNP (PCP) Patient Instructions My [facility] Problem Qualifiers Additional Impression: Hypertension Hypertension type: unspecified Qualified Codes: I10 - Essential (primary) hypertension
[2018-05-23] MEDS: SODIUM CHLORIDE 0.9% 1000ML 1,000 ML IV SCH ×3 (00:37→16:10)
[2018-05-23] MEDS: THIAMINE HCL 100 MG TAB PO SCH ×2 (00:38→07:37)
[2018-05-23] MEDS: LISINOPRIL 20 MG TAB PO SCH ×3 (00:39→20:46)
[2018-05-23] MEDS: ASPIRIN 81 MG ECTAB PO SCH (07:36)
[2018-05-23] MEDS: CLOPIDOGREL BISULFATE 75 MG TAB PO SCH (07:36)
[2018-05-23] MEDS: DILTIAZEM HCL (TIAzac) 180 MG CAPCR PO SCH (07:37)
[2018-05-23 08:02] LABS: CALCIUM 8.7 mg/dl (8.5-10.1); CREATININE 0.86 mg/dl (0.60-1.20)
[2018-05-23] MEDS: HEPARIN SOD 5000 UNIT/0.5 ML CARP SQ SCH ×2 (10:35→20:46)
--- NOTE | 2018-05-23 10:40 | Family Medicine Progress Note ---
Progress Note Date of Service May 23, 2018. Subjective Feeling well this AM Mentally at baseline per daughter in law at bedside GERALD overnight Dr. Vega about to see her reports slight headache Tolerating PO Says she got up to bathroom with no lightheadedness, vertigo or dizziness ROS See HPI for pertinent positives and negatives. Otherwise denies new headache, vision change, chest pain, dyspnea, abdominal pain, loose or bloody stools, dysuria, or numbness tingling in extremities. Medications Current Inpatient Medications Medications (Trade) Dose Ordered Sig/Gunjan Route Start Time Stop Time Status Last Admin Dose Admin Acetaminophen (Tylenol Tab) 650 mg Q4H PRN PO 05/22/18 21:15 06/21/18 21:14 05/23/18 09:05 650 MG Al Hydrox/Mg Hydrox/Simethicone (Maalox Max Susp) 15 ml Q4H PRN PO 05/22/18 21:15 06/21/18 21:14 Magnesium Hydroxide (Milk Of Magnesia Susp) 30 ml Q6H PRN PO 05/22/18 21:15 06/21/18 21:14 Polyethylene (Miralax Powder Packet) 17 gm DAILY PRN PO 05/22/18 21:15 06/21/18 21:14 Ondansetron HCl (Zofran Inj) 4 mg Q6H PRN IV 05/22/18 21:15 06/21/18 21:14 Aspirin (Ecotrin Tab) 81 mg QAM PO 05/23/18 09:00 06/22/18 08:59 05/23/18 07:36 81 MG Clopidogrel Bisulfate (plAVix TAB) 75 mg DAILY PO 05/23/18 09:00 06/22/18 08:59 05/23/18 07:36 75 MG Diltiazem HCl (TIAzac CAP) 360 mg QAM PO 05/23/18 09:00 06/22/18 08:59 05/23/18 07:37 360 MG Hydralazine HCl (Apresoline Tab) 25 mg TID PO 05/23/18 09:00 06/22/18 08:59 05/23/18 07:36 25 MG Lisinopril (Zestril Tab) 20 mg AMHS PO 05/23/18 09:00 06/22/18 08:59 05/23/18 08:17 20 MG Simvastatin (Zocor Tab) 20 mg Q2D@0900 PO 05/24/18 09:00 06/23/18 08:59 Sodium Chloride 1,000 ml @ 80 mls/hr [id number] IV 05/22/18 21:43 06/21/18 21:42 05/23/18 00:37 80 MLS/HR Thiamine HCl (Vitamin B-1 Tab) 100 mg QAM PO 05/22/18 23:35 06/21/18 23:34 05/23/18 07:37 100 MG Lorazepam (Ativan Inj) 1 mg ONE PRN IV 05/22/18 21:45 Heparin Sodium (Porcine) (Heparin Sq 5000 Unit/0.5ml) 5,000 unit Q12 SQ 05/23/18 09:00 06/22/18 08:59 Folic Acid (Folvite Tab) 1 mg QAM PO 05/23/18 09:00 06/22/18 08:59 05/23/18 07:36 1 MG Objective Vital Signs Date Time Temp Pulse Resp B/P (MAP) Pulse Ox O2 Delivery O2 Flow Rate FiO2 05/23/18 09:07 165/71 (102) 05/23/18 08:30 Room Air 05/23/18 08:00 Room Air 05/23/18 07:15 37.0 86 16 185/72 (109) 92 Room Air 05/23/18 04:35 66 180/69 (106) 05/23/18 00:35 97 178/94 (122) 05/22/18 23:30 36.6 65 16 205/75 97 Room Air 05/22/18 22:49 66 18 190/93 96 05/22/18 21:16 68 18 187/87 97 Room Air 05/22/18 19:58 178/92 05/22/18 18:15 36.8 70 18 205/79 97 Room Air Physical Exam Notes: GENERAL: Awake, alert to self not to place or time. No distress HENT: Normocephalic, atraumatic. EYES: Normal conjunctiva. Sclera non-icteric. EOMI NECK: Supple. Full range of motion. RESPIRATORY: Clear to auscultation. CARDIAC: Regular rate, normal rhythm. Extremities warm and well perfused. Pulses equal. ABDOMEN: Soft, non-distended. No tenderness to palpation. No rebound or guarding. No masses. LOWER EXTREMITIES: Calves are equal size bilaterally and non-tender. No edema. No discoloration. NEURO: No sensorymotor deficits noted. CN II-XII in tact. Did not assess gait. SKIN: No rash or jaundice noted. Laboratory Results 05/22/18 18:42 Red Blood Count 4.31, Mean Corpuscular Volume 86.8, Mean Corpuscular Hemoglobin 29.7, Mean Corpuscular Hemoglobin Concent 34.2, Mean Platelet Volume 9.1, Neutrophils (%) (Auto) 54.1, Lymphocytes (%) (Auto) 37.1, Monocytes (%) (Auto) 7.7, Eosinophils (%) (Auto) 0.9, Basophils (%) (Auto) 0.1, Neutrophils # (Auto) 3.66, Lymphocytes # (Auto) 2.51, Monocytes # (Auto) 0.52, Eosinophils # (Auto) 0.06, Basophils # (Auto) 0.01 05/23/18 07:15 Test 05/22/18 18:42 05/22/18 19:11 05/23/18 01:05 05/23/18 07:15 White Blood Count 6.77 K/uL (4.8-10.8) Red Blood Count 4.31 M/uL (4.2-5.4) Hemoglobin 12.8 g/dL (12.0-16.0) Hematocrit 37.4 % (37-47) Mean Corpuscular Volume 86.8 fL (80-100) Mean Corpuscular Hemoglobin 29.7 pg (25-34) Mean Corpuscular Hemoglobin Concent 34.2 g/dl (32-36) Platelet Count 279 K/uL (130-400) Mean Platelet Volume 9.1 fL (7.4-10.4) Neutrophils (%) (Auto) 54.1 % Lymphocytes (%) (Auto) 37.1 % Monocytes (%) (Auto) 7.7 % Eosinophils (%) (Auto) 0.9 % Basophils (%) (Auto) 0.1 % Neutrophils # (Auto) 3.66 K/uL (1.4-6.5) Lymphocytes # (Auto) 2.51 K/uL (1.2-3.4) Monocytes # (Auto) 0.52 K/uL (0.11-0.59) Eosinophils # (Auto) 0.06 K/uL (0-0.5) Basophils # (Auto) 0.01 K/uL (0-0.2) RDW Standard Deviation 40.7 fL (36.4-46.3) RDW Coefficient of Variation 12.6 % (11.5-14.5) Immature Granulocyte % (Auto) 0.1 % Immature Granulocyte # (Auto) 0.01 K/uL (0.00-0.02) Osmolality 251 mOsm/kg (280-300) Total Bilirubin 0.8 mg/dl (0.2-1) Direct Bilirubin 0.2 mg/dl (0-0.2) Aspartate Amino Transf (AST/SGOT) 22 U/L (15-37) Alanine Aminotransferase (ALT/SGPT) 19 U/L (12-78) Alkaline Phosphatase 53 U/L (45-117) Total Protein 7.4 gm/dl (6.4-8.2) Albumin 4.3 gm/dl (3.4-5.0) Ethyl Alcohol mg/dL < 3.0 mg/dl (0-3) Urine Osmolality 178 mOms/kg (500-800) Urine Random Sodium 74 mEq/L Prothrombin Time 10.5 SECONDS (9.0-12.0) Prothromb Time International Ratio 1.0 (0.9-1.1) Anion Gap 8.0 mmol/L (3-11) Est Creatinine Clear Calc Drug Dose 35.6 ml/min Estimated GFR () 73.9 Estimated GFR (Non- 63.8 BUN/Creatinine Ratio 14.3 (10-20) Calcium Level 8.7 mg/dl (8.5-10.1) Thyroid Stimulating Hormone (TSH) 1.140 uIu/ml (0.300-4.500) Cortisol AM Sample 21.64 mcg/dl (4.30-22.40) Assessment and Plan 82F here for headache found to have SBP >200 and electrolyte abnormality PMHx: dementia, hx of L hemispheric CVA, TIAs, bilateral carotid artery stenosis s/p b/l carotid endarterectomy, HTN, HLD, and breast cancer Headache, with elevated blood pressure, versus hypertensive emergency -Symptoms may be explained by hyponatremia however given elevated blood pressures and given baseline memory problems, elevated blood pressures may be simply due to noncompliance -Nonetheless, home meds restarted, systolic stable 160s - lisinopril 20mg BID, diltiazem 360mg qam, hydralazine 25mg TID - headache mostly resolved with tylenol and stabilized BP Hyponatremia - Na 123 on admission - - improving to 128 with just NSS half liter bolus overnight, with maintenance @80ml/hr. Goal rate of increase in sodium per day is about 10-12 points. - diffl includes renal def (followed by Dr. Faustin outpatient, last visit within 6 months no new changes in meds), Thyroid (TSH normal), adrenal insuff ( am cortisol normal) and beer potomania. On review of outside records, family medicine doctor noted a conversation with patient's daughter regarding history of alcohol use. Patient currently denies use. -Given low serum osmolality kidneys are appropriately putting out dilute urine. -Appreciate nephrology recommendations H/o alcohol abuse - AWSS running - no ativan needed so far - Thiamine, folic acid on - follow HLD/CAD - Continue aspirin and clopidogrel 75mg daily - Continue simvastatin 20mg q2d renally dosed FEN/GI: Regular diet. Normal saline running at 80 mL/h DVT prop: Heparin 5000 units every 12 hours SQ CODE STATUS : full code Dispo: MedSurg. Discharge eval. Resident Physician Supervision Note: I interviewed and examined the patient. Discussed with Dr. Kaminski and agree with findings and plan as documented in the note. Any exceptions or clarifications are listed here: None Documented By: Neville De feeling better notes she doesn't drink family notes she's not drank for about 3yrs, but questionable taking care of herself and questionable eating/PO intake at home vitals noted nad breathing unlabored no pallor or icterus hyponatremia - low solute state, saline, follow headache, possible HTN urgency - improving otherwise as above Continued [facility] stay due to: multiple IV medications needed Resident Tracking Resident Involvement: Resident Care Provided Care Provided: Adult Hospital Medicine
--- NOTE | 2018-05-23 12:04 | Nephrology Consultation ---
Nephrology Consultation Date & Providers Date of Consultation: May 23, 2018. Primary Care Provider: Jaleel Murphy III, CRNP Referring Provider: Reason for Consultation Evaluation of hypertension and hyponatremia History of Present Illness Ms. David is an 82 year old white female who is seen at the request of the [facility] Hospitalist group for evaluation of hypertension and hyponatremia. Medical records in the EMR were reviewed and are summarized as follows: Ms. 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 Her Customer Experience Associate is Dr. Faustin. Previous evaluation has revealed a benign urine sediment and normal sized kidneys by imaging studies. Blood pressure has been managed w/ a combination of Lisinopril , Diltiazem and Hydralazine. Previous use of thiazide diuretic resulted in progressive hyponatremia and was discontinued. Ms. Wray's medical history is also significant for breast cancer s/p mastectomy (no radiation or chemotherapy), PVD s/p bilateral CEA, remote h/o tobacco use and dementia. Ms. David presented to the hospital for evaluation of GRIFFITH. SBP at the time of presentation was > 200 mmHG. Serum sodium was 123 mmol/L. 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 # HTN # Breast CA s/p mastectomy (no radiation or chemotherapy) # PVD s/p bilateral CEA # Remote h/o tobacco use # Dementia Surgical: # Bilateral CEA Allergies Coded Allergies: Penicillins (Verified Allergy, Intermediate, "swelling" (pt does not remember where), 03/10/18) Inpatient Medications Current Inpatient Medications Medications (Trade) Dose Ordered Sig/Gunjan Route Start Time Stop Time Status Last Admin Dose Admin Acetaminophen (Tylenol Tab) 650 mg Q4H PRN PO 05/22/18 21:15 06/21/18 21:14 05/23/18 09:05 650 MG Al Hydrox/Mg Hydrox/Simethicone (Maalox Max Susp) 15 ml Q4H PRN PO 05/22/18 21:15 06/21/18 21:14 Magnesium Hydroxide (Milk Of Magnesia Susp) 30 ml Q6H PRN PO 05/22/18 21:15 06/21/18 21:14 Polyethylene (Miralax Powder Packet) 17 gm DAILY PRN PO 05/22/18 21:15 06/21/18 21:14 Ondansetron HCl (Zofran Inj) 4 mg Q6H PRN IV 05/22/18 21:15 06/21/18 21:14 Aspirin (Ecotrin Tab) 81 mg QAM PO 05/23/18 09:00 06/22/18 08:59 05/23/18 07:36 81 MG Clopidogrel Bisulfate (plAVix TAB) 75 mg DAILY PO 05/23/18 09:00 06/22/18 08:59 05/23/18 07:36 75 MG Diltiazem HCl (TIAzac CAP) 360 mg QAM PO 05/23/18 09:00 06/22/18 08:59 05/23/18 07:37 360 MG Hydralazine HCl (Apresoline Tab) 25 mg TID PO 05/23/18 09:00 06/22/18 08:59 05/23/18 07:36 25 MG Lisinopril (Zestril Tab) 20 mg AMHS PO 05/23/18 09:00 06/22/18 08:59 05/23/18 08:17 20 MG Simvastatin (Zocor Tab) 20 mg Q2D@0900 PO 05/24/18 09:00 06/23/18 08:59 Sodium Chloride 1,000 ml @ 80 mls/hr [id number] IV 05/22/18 21:43 06/21/18 21:42 Future Hold 05/23/18 10:57 80 MLS/HR Thiamine HCl (Vitamin B-1 Tab) 100 mg QAM PO 05/22/18 23:35 06/21/18 23:34 05/23/18 07:37 100 MG Lorazepam (Ativan Inj) 1 mg ONE PRN IV 05/22/18 21:45 Heparin Sodium (Porcine) (Heparin Sq 5000 Unit/0.5ml) 5,000 unit Q12 SQ 05/23/18 09:00 06/22/18 08:59 Folic Acid (Folvite Tab) 1 mg QAM PO 05/23/18 09:00 06/22/18 08:59 05/23/18 07:36 1 MG Family History Cancer Diabetes mellitus Gallbladder disease Hypertension Lung disease Negative for CKD / ESRD Social History Smoking Status: Former Smoker Drug Use: none Marital Status: Occupation: retired . Remote h/o tobacco use Review of Systems Constitutional: No fever Cardiovascular: No chest pain Abdomen: No pain, No nausea, No vomiting A complete review of systems was performed. Pertinent positives are noted above. All other systems are negative. Physical Exam Date Time Temp Pulse Resp B/P (MAP) Pulse Ox O2 Delivery O2 Flow Rate FiO2 05/23/18 09:07 165/71 (102) 05/23/18 08:30 Room Air 05/23/18 08:00 Room Air 05/23/18 07:15 37.0 86 16 185/72 (109) 92 Room Air 05/23/18 04:35 66 180/69 (106) 05/23/18 00:35 97 178/94 (122) 05/22/18 23:30 36.6 65 16 205/75 97 Room Air 05/22/18 22:49 66 18 190/93 96 05/22/18 21:16 68 18 187/87 97 Room Air 05/22/18 19:58 178/92 05/22/18 18:15 36.8 70 18 205/79 97 Room Air General Appearance: no apparent distress Head: atraumatic Eyes: PERRL, EOMI ENT: + pertinent finding (dry mucous membranes) Neck: no adenopathy Respiratory/Chest: lungs clear, no respiratory distress Cardiovascular: regular rate, rhythm Abdomen/GI: normal bowel sounds, non tender, soft Extremities/Musculoskelatal: no pedal edema, + pertinent finding (poor skin turgor) Neurologic/Psych: alert, oriented x 3 Laboratory Results Last 24 Hours Test 05/22/18 18:42 05/22/18 19:11 05/23/18 01:05 05/23/18 07:15 White Blood Count 6.77 K/uL Red Blood Count 4.31 M/uL Hemoglobin 12.8 g/dL Hematocrit 37.4 % Mean Corpuscular Volume 86.8 fL Mean Corpuscular Hemoglobin 29.7 pg Mean Corpuscular Hemoglobin Concent 34.2 g/dl Platelet Count 279 K/uL Mean Platelet Volume 9.1 fL Neutrophils (%) (Auto) 54.1 % Lymphocytes (%) (Auto) 37.1 % Monocytes (%) (Auto) 7.7 % Eosinophils (%) (Auto) 0.9 % Basophils (%) (Auto) 0.1 % Neutrophils # (Auto) 3.66 K/uL Lymphocytes # (Auto) 2.51 K/uL Monocytes # (Auto) 0.52 K/uL Eosinophils # (Auto) 0.06 K/uL Basophils # (Auto) 0.01 K/uL RDW Standard Deviation 40.7 fL RDW Coefficient of Variation 12.6 % Immature Granulocyte % (Auto) 0.1 % Immature Granulocyte # (Auto) 0.01 K/uL Sodium Level 123 mmol/L 128 mmol/L Potassium Level 3.5 mmol/L 4.0 mmol/L Chloride Level 89 mmol/L 97 mmol/L Carbon Dioxide Level 23 mmol/L 24 mmol/L Anion Gap 11.0 mmol/L 8.0 mmol/L Blood Urea Nitrogen 13 mg/dl 12 mg/dl Creatinine 1.03 mg/dl 0.86 mg/dl Est Creatinine Clear Calc Drug Dose 29.7 ml/min 35.6 ml/min Estimated GFR () 59.5 73.9 Estimated GFR (Non- 51.3 63.8 BUN/Creatinine Ratio 12.6 14.3 Random Glucose 93 mg/dl 90 mg/dl Osmolality 251 mOsm/kg Calcium Level 8.9 mg/dl 8.7 mg/dl Total Bilirubin 0.8 mg/dl Direct Bilirubin 0.2 mg/dl Aspartate Amino Transf (AST/SGOT) 22 U/L Alanine Aminotransferase (ALT/SGPT) 19 U/L Alkaline Phosphatase 53 U/L Total Protein 7.4 gm/dl Albumin 4.3 gm/dl Ethyl Alcohol mg/dL < 3.0 mg/dl Urine Osmolality 178 mOms/kg Urine Random Sodium 74 mEq/L Prothrombin Time 10.5 SECONDS Prothromb Time International Ratio 1.0 Thyroid Stimulating Hormone (TSH) 1.140 uIu/ml Cortisol AM Sample 21.64 mcg/dl Impression (1) Hyponatremia (2) Hypertension (3) Dehydration Hypoosmolar hyponatremia in a patient who is clinically volume contracted. TSH , cortisol and kidney function are normal. Uosm is < 200. Clinically suspect that hyponatremia is on the basis of dehydration and low solute intake. Serum sodium has improved from 125 to 128 mmol/L with 0.9NS administration. Patient has dementia and adherence to prescribed antihypertensive regimen is in question. Will increase Lisinopril back to 20 mg BID and continue Diltiazem and Hydralazine as previously prescribed. Recommendations HYPONATREMIA: -- Continue gentle hydration w/ 0.9NS at 80 cc/hr IV -- Monitor serial PRP HYPERTENSION: -- Increase Lisinopril back to 20 mg po BID -- Will order renal US w/ renal artery doppler
[2018-05-23 14:48] LABS: POTASSIUM RANDOM URINE 15.4 mEq/L
--- NOTE | 2018-05-23 15:56 | DIAGNOSTIC IMAGING REPORT ---
DUPLEX RENAL ARTERY CLINICAL HISTORY: HTN hypertension TECHNIQUE: Renal arterial Doppler COMPARISON STUDY: 05/23/2018 FINDINGS: Somewhat limited study as the patient had difficulty in cooperating with the exam. Bilateral renal cysts are again noted similar compared to the prior study of 05/23/2018. There is a slight increase in resistive indices of both kidneys. The proximal right renal artery demonstrates a significant increase in velocities to approximately 220 cm/s. The remaining arterial structures of the kidneys bilaterally are unremarkable within limitations discussed above. IMPRESSION: 1. 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 2. Mild increase in resistive indices bilaterally indicative of chronic small vessel change of the kidneys. 3. Bilateral renal cysts which have been described previously. 4. Compromised exam due to patient's difficulty in cooperating as well as the presence of the renal cyst. The above report was generated using voice recognition software. It may contain grammatical, syntax or spelling errors. Electronically signed by: Eron Huggins M.D. 05/23/2018 3:54 PM Dictated Date/Time: 05/23/2018 3:46 PM
--- NOTE | 2018-05-23 16:00 | DIAGNOSTIC IMAGING REPORT ---
EXAMINATION: RENAL ULTRASOUND CLINICAL HISTORY: Hypertension RENAL MASS COMPARISON STUDY: CT scan dated 02/27/2012 FINDINGS: The right kidney measures 13.1 cm. The left kidney measures 9.3 cm. There is no evidence of hydronephrosis. There are multiple large bilateral renal cysts. The largest on the right is a 7.3 cm cyst. This contains a single thin septation. The largest on the left is a 2.8 cm cyst. No bladder abnormalities are visualized. Bilateral ureteral jets were visualized. IMPRESSION : Large bilateral renal cysts. No evidence of obstruction. Electronically signed by: Fabien Brown M.D. 05/23/2018 3:59 PM Dictated Date/Time: 05/23/2018 3:56 PM
[2018-05-23 16:32] LABS: CALCIUM 9.1 mg/dl (8.5-10.1); CREATININE 1.17 mg/dl (0.60-1.20)
[2018-05-24] VITALS: BP 139/83; PULSE 69; TEMP 36.7; O2SAT 96
[2018-05-24] MEDS: SODIUM CHLORIDE 0.9% 1000ML 1,000 ML IV SCH (02:53)
[2018-05-24 07:07] VITALS: BP 172/74; PULSE 53; TEMP 36.7; O2SAT 97
[2018-05-24 07:50] LABS: CALCIUM 8.6 mg/dl (8.5-10.1); CREATININE 1.06 mg/dl (0.60-1.20)
[2018-05-24] MEDS: HEPARIN SOD 5000 UNIT/0.5 ML CARP SQ SCH (08:39)
[2018-05-24] MEDS: ASPIRIN 81 MG ECTAB PO SCH (08:40)
[2018-05-24] MEDS: THIAMINE HCL 100 MG TAB PO SCH (08:40)
[2018-05-24] MEDS: DILTIAZEM HCL (TIAzac) 180 MG CAPCR PO SCH (08:40)
[2018-05-24] MEDS: CLOPIDOGREL BISULFATE 75 MG TAB PO SCH (08:40)
[2018-05-24] MEDS: LISINOPRIL 20 MG TAB PO SCH (08:41)
[2018-05-24 08:57] LABS: POTASSIUM 4.7 mmol/L (3.5-5.1)
[2018-05-24] MEDS ORDERED: SIMVASTATIN 20 MG TAB PO SCH (09:00)
--- NOTE | 2018-05-24 09:14 | Nephrology Progress Note ---
Nephrology Progress Note Date of Service May 24, 2018. Chief Complaint Evaluation of hypertension and hyponatremia Subjective Ms. Wray was seen & examined in her hospital room this morning. Her son was present at bedside. Patient was oriented to self, place and month. She denied GRIFFITH, visual change or focal weakness. Review of Systems Constitutional: No fever Cardiovascular: No chest pain Respiratory: No dyspnea at rest Abdomen: No pain, No nausea, No vomiting Extremities: No leg edema A complete review of systems was performed. Pertinent positives are noted above. All other systems are negative. Vital Signs Last 8 Hrs Date Time Temp Pulse Resp B/P (MAP) Pulse Ox O2 Delivery O2 Flow Rate FiO2 05/24/18 07:07 36.7 53 16 172/74 (106) 97 Room Air Last Recorded Weight Weight (Kilograms): 49.300 Physical Exam General Appearance: no apparent distress Head: atraumatic Eyes: PERRL Neck: no adenopathy Respiratory/Chest: lungs clear, no respiratory distress Cardiovascular: regular rate, rhythm Abdomen/GI: normal bowel sounds, non tender, soft Extremities/Musculoskelatal: no calf tenderness, no pedal edema Neurologic/Psych: alert, oriented x 3 Family History Cancer Diabetes mellitus Gallbladder disease Hypertension Lung disease Negative for CKD / ESRD Social History Smoking Status: Former smoker Smokeless Tobacco Use: No Alcohol Use: socially Drug Use: none Marital Status: Occupation: retired . Remote h/o tobacco use Laboratory Results Past 24 Hours 05/23/18 15:51 05/24/18 07:18 Test 05/23/18 12:25 05/23/18 15:51 05/24/18 07:18 Urine Osmolality 247 mOms/kg (500-800) Urine Random Potassium 15.4 mEq/L Anion Gap 9.0 mmol/L (3-11) 7.0 mmol/L (3-11) Est Creatinine Clear Calc Drug Dose 26.2 ml/min 28.9 ml/min Estimated GFR () 51.0 57.4 Estimated GFR (Non- 44.0 49.6 BUN/Creatinine Ratio 19.2 (10-20) 19.6 (10-20) Calcium Level 9.1 mg/dl (8.5-10.1) 8.6 mg/dl (8.5-10.1) Chemistry Specimen Hemolysis Allergies Coded Allergies: Penicillins (Verified Allergy, Intermediate, "swelling" (pt does not remember where), 03/10/18) Medications Current Inpatient Medications Medications (Trade) Dose Ordered Sig/Gunjan Route Start Time Stop Time Status Last Admin Dose Admin Acetaminophen (Tylenol Tab) 650 mg Q4H PRN PO 05/22/18 21:15 06/21/18 21:14 05/23/18 09:05 650 MG Al Hydrox/Mg Hydrox/Simethicone (Maalox Max Susp) 15 ml Q4H PRN PO 05/22/18 21:15 06/21/18 21:14 Magnesium Hydroxide (Milk Of Magnesia Susp) 30 ml Q6H PRN PO 05/22/18 21:15 06/21/18 21:14 Polyethylene (Miralax Powder Packet) 17 gm DAILY PRN PO 05/22/18 21:15 06/21/18 21:14 Ondansetron HCl (Zofran Inj) 4 mg Q6H PRN IV 05/22/18 21:15 06/21/18 21:14 Aspirin (Ecotrin Tab) 81 mg QAM PO 05/23/18 09:00 06/22/18 08:59 05/24/18 08:40 81 MG Clopidogrel Bisulfate (plAVix TAB) 75 mg DAILY PO 05/23/18 09:00 06/22/18 08:59 05/24/18 08:40 75 MG Diltiazem HCl (TIAzac CAP) 360 mg QAM PO 05/23/18 09:00 06/22/18 08:59 05/24/18 08:40 360 MG Simvastatin (Zocor Tab) 20 mg Q2D@0900 PO 05/24/18 09:00 06/23/18 08:59 05/24/18 08:41 20 MG Thiamine HCl (Vitamin B-1 Tab) 100 mg QAM PO 05/22/18 23:35 06/21/18 23:34 05/24/18 08:40 100 MG Lorazepam (Ativan Inj) 1 mg ONE PRN IV 05/22/18 21:45 Heparin Sodium (Porcine) (Heparin Sq 5000 Unit/0.5ml) 5,000 unit Q12 SQ 05/23/18 09:00 06/22/18 08:59 05/24/18 08:39 5,000 UNIT Folic Acid (Folvite Tab) 1 mg QAM PO 05/23/18 09:00 06/22/18 08:59 05/24/18 08:40 1 MG Lisinopril (Zestril Tab) 20 mg BID PO 05/23/18 21:00 06/22/18 08:59 05/24/18 08:41 20 MG Hydralazine HCl (Apresoline Tab) 50 mg TID PO 05/24/18 14:00 06/23/18 13:59 Impression (1) Hyponatremia (2) Hypertension (3) Dehydration Hypoosmolar hyponatremia in a patient who is clinically volume contracted. TSH , cortisol and kidney function are normal. Uosm is < 200. Clinically suspect that hyponatremia is on the basis of dehydration and low solute intake. Serum sodium has improved from 125 to 128 mmol/L with 0.9NS administration. Patient has dementia and adherence to prescribed antihypertensive regimen is in question. Will increase Lisinopril back to 20 mg BID and continue Diltiazem and Hydralazine as previously prescribed. Recommendations HYPONATREMIA: -- Corrected -- Heplock IV HYPERTENSION: -- Blood pressure is mildly elevated. Will increase Hydralazine to 50 mg po TID -- Renal US report reviewed today: L kidney 9.3 cm, R kidney 13.1. Mild to moderate R stenosis. -- HTN is not likely on the basis of PAMELA given only unilateral moderate stenosis If discharge is anticipated please have patient follow up in the [facility] [facility] Nephrology office w/ Dr. Faustin in 1 - 2 weeks.
[2018-05-24] MEDS ORDERED: APR25 PO ×2 (15:36)
--- NOTE | 2018-05-24 15:42 | Discharge Instructions ---
Discharge Instructions Date of Service May 24, 2018. Admission Reason for Admission: Hyponatremia Discharge Discharge Diagnosis / Problem: low sodium (see below) Discharge Goals Goal(s): Diagnostic testing, Therapeutic intervention Activity Recommendations Activity Limitations: resume your previous activity . Instructions / Follow-Up Instructions / Follow-Up a) hyponatremia (low sodium) -your sodium levels were quite low, while it's possible that the high blood pressure was part of the cause of your situation, it's also actually more likely that the low sodium was the whole culprit, and the high blood pressure and headache were just symptoms from feeling "lousy" from the sodium levels being off -on review, it appeared that you were in a "low solute state" - meaning that the sodium was low because your body was depleted. since you're not on any diuretics that could do this, it's most likely that this came about because regular losses of salt and water (sweat, breathing etc) was more than what you were taking in -make sure you're getting enough to eat. often as we age, our natural hunger and thirst hormones fade and we don't necessarily feel as hungry or thirsty as our body should to protect you against that, it's often helpful to write down what you eat each day so that you (and your family) can look it over to see that you're getting enough -we'll also want to follow your levels closely for the near future - we'll want you to have labwork (BMP) drawn once a week for the next 2 weeks, then after that how often we'll need to check will depend on what your levels have been doing and how you're feeling b) elevated blood pressure -while your pressure was up enough that it could've been the cause of the headache, it's actually more likely (as noted above) that the high blood pressure and headache were part of the picture of feeling lousy from the low sodium. (not that low sodium directly can raise your pressure - but it can cause a headache, and the headache as well as just overall feeling bad can cause blood pressures to rise) -because your numbers do look too high overall, we've increased your hydralazine to 50mg three times a day - use caution with standing up quickly - sometimes after a dose adjustment with a medication like this, you can feel more easily lightheaded -Dr Vega did an ultrasound of your kidneys - the main thing of significance he found was that the artery to your RIGHT kidney was about 60-70% blocked - this will be something to keep an eye on over time. Current Hospital Diet Patient's current hospital diet: AHA Diet (Heart Healthy) Discharge Diet Recommended Diet: Regular Diet Pending Studies Studies pending at discharge: no Medical Emergencies . Who to Call and When: Medical Emergencies: If at any time you feel your situation is an emergency, please call 911 immediately. . Non-Emergent Contact Non-Emergency issues call your: Primary Care Provider, Mobile Tester . . "Provider Documentation" section prepared by Neville De. .
[2018-05-24 15:46] VITALS: BP 172/74; PULSE 53; TEMP 36.7; O2SAT 97
[2018-05-24 15:58] VITALS: BP 134/73; PULSE 74; TEMP 36.6; O2SAT 99
--- NOTE | 2018-05-24 18:24 | Discharge Summary ---
Discharge Summary Date of Service May 24, 2018. Discharge Summary Admission Date: May 22, 2018 at 21:25 Discharge Date: May 24, 2018 Discharge Disposition: Home Principal Diagnosis: hyponatremia Problems/Secondary Diagnoses: (1) Hypertension Status: Chronic Immunizations: Have You Had Influenza Vaccine: Yes Influenza Vaccine Date: Jul 05, 2011 History of Tetanus Vaccine?: Yes History of Pneumococcal: Yes Pneumococcal Date: Aug 26, 2010 History of Hepatitis B Vaccine: Unknown Procedures: Last Resulted CBC 05/22/18 18:42 Red Blood Count 4.31, Mean Corpuscular Volume 86.8, Mean Corpuscular Hemoglobin 29.7, Mean Corpuscular Hemoglobin Concent 34.2, Mean Platelet Volume 9.1, Neutrophils (%) (Auto) 54.1, Lymphocytes (%) (Auto) 37.1, Monocytes (%) (Auto) 7.7, Eosinophils (%) (Auto) 0.9, Basophils (%) (Auto) 0.1, Neutrophils # (Auto) 3.66, Lymphocytes # (Auto) 2.51, Monocytes # (Auto) 0.52, Eosinophils # (Auto) 0.06, Basophils # (Auto) 0.01 Last Resulted BMP 05/24/18 07:18 EXAMINATION: RENAL ULTRASOUND CLINICAL HISTORY: Hypertension RENAL MASS COMPARISON STUDY: CT scan dated 02/27/2012 FINDINGS: The right kidney measures 13.1 cm. The left kidney measures 9.3 cm. There is no evidence of hydronephrosis. There are multiple large bilateral renal cysts. The largest on the right is a 7.3 cm cyst. This contains a single thin septation. The largest on the left is a 2.8 cm cyst. No bladder abnormalities are visualized. Bilateral ureteral jets were visualized. IMPRESSION : Large bilateral renal cysts. No evidence of obstruction. Electronically signed by: Fabien Brown M.D. 05/23/2018 3:59 PM DUPLEX RENAL ARTERY CLINICAL HISTORY: HTN hypertension TECHNIQUE: Renal arterial Doppler COMPARISON STUDY: 05/23/2018 FINDINGS: Somewhat limited study as the patient had difficulty in cooperating with the exam. Bilateral renal cysts are again noted similar compared to the prior study of 05/23/2018. There is a slight increase in resistive indices of both kidneys. The proximal right renal artery demonstrates a significant increase in velocities to approximately 220 cm/s. The remaining arterial structures of the kidneys bilaterally are unremarkable within limitations discussed above. IMPRESSION: 1. 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 2. Mild increase in resistive indices bilaterally indicative of chronic small vessel change of the kidneys. 3. Bilateral renal cysts which have been described previously. 4. Compromised exam due to patient's difficulty in cooperating as well as the presence of the renal cyst. The above report was generated using voice recognition software. It may contain grammatical, syntax or spelling errors. Electronically signed by: Eron Huggins M.D Consultations: Nephrology: Impression (1) Hyponatremia (2) Hypertension (3) Dehydration Hypoosmolar hyponatremia in a patient who is clinically volume contracted. TSH , cortisol and kidney function are normal. Uosm is < 200. Clinically suspect that hyponatremia is on the basis of dehydration and low solute intake. Serum sodium has improved from 125 to 128 mmol/L with 0.9NS administration. Patient has dementia and adherence to prescribed antihypertensive regimen is in question. Will increase Lisinopril back to 20 mg BID and continue Diltiazem and Hydralazine as previously prescribed. Recommendations HYPONATREMIA: -- Corrected -- Heplock IV HYPERTENSION: -- Blood pressure is mildly elevated. Will increase Hydralazine to 50 mg po TID -- Renal US report reviewed today: L kidney 9.3 cm, R kidney 13.1. Mild to moderate R stenosis. -- HTN is not likely on the basis of PAMELA given only unilateral moderate stenosis If discharge is anticipated please have patient follow up in the [facility] Nephrology office w/ Dr. Faustin in 1 - 2 weeks. <Electronically signed by Manuel Vega M.D.> Signed: 05/24/1814 Signed: The status of this report is Signed * If report status is Draft, the document has not been finalized by the responsible provider. Addendum: 05/24/1821 Addendum: Manuel Vega M.D. on 05/24/18 @ 09:21 Addendum Section I have contacted the Nephrology office staff and asked them to schedule follow up appointment and outpatient lab draw Medication Reconciliation New Medications: Hydralazine Hcl (Apresoline) 25 Mg Tab 50 MG PO TID, #90 TAB Continued Medications: Aspirin (Aspirin Ec) 81 Mg Tab 81 MG PO QAM Clopidogrel Bisulfate (Clopidogrel) 75 Mg Tab 75 MG PO DAILY Diltiazem Hcl Extended Release (Tiazac 360 Mg) 360 Mg Cap 360 MG PO QAM Lisinopril (Lisinopril) 20 Mg Tab 20 MG PO AMHS Simvastatin (Simvastatin) 20 Mg Tab 20 MG PO Q2D Discontinued Medications: Hydralazine Hcl (Apresoline) 25 Mg Tab 25 MG PO TID Discharge Exam Physical Exam: General Appearance: no apparent distress Eyes: EOMI ENT: hearing grossly normal Neck: trachea midline Respiratory/Chest: no respiratory distress, no accessory muscle use Extremities: normal inspection 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 BP management as with meds as above - notably hydralazine increased to 50mg TID - headache mostly resolved with tylenol and stabilized BP Hyponatremia - Na 123 on admission - - improving and stable for home -appearing to be a low solute state - to follow PO intake more closely at home, and follow BMP closely for at least next several weeks -Appreciate nephrology recommendations H/o alcohol abuse - initial concern that this might play a role - but after further review and confirmation with family - no active drinking for years HLD/CAD - Continue aspirin and clopidogrel 75mg daily - Continue simvastatin 20mg q2d renally dosed stable for home family notes that they'll be looking into [facility] due to dementia, but that they firmly believe that right now she is stable in her home environment Total Time Spent: Less than 30 minutes This includes examination of the patient, discharge planning, medication reconciliation, and communication with other providers. Discharge Instructions Please refer to the electronic Patient Visit Report (Discharge Instructions) for additional information. Follow-Up PCP next week weekly BMP x 2 weeks then as clinically warranted Additional Copies To Jaleel Murphy III, CRNP; Meredith Faustin MD
== END 2018-05-24 16:00 | disposition home health service (06) | DRG 641 ==
LOC: C.EDB 18:12 → C.MED 21:25 → ENRESERV 21:51 → C.MED 05-23 01:13 → C.MS2W 05-23 22:11
PROVIDERS: ADMIT Hospitalist; ATTEND Family Medicine
DX: E87.1 Hypo-osmolality and hyponatremia (principal); I16.1 Hypertensive emergency; I11.9 Hypertensive heart disease without heart failure; F03.90 Unspecified dementia, unspecified severity, without behavioral disturbance, psychotic disturbance, mood disturbance, and anxiety; E78.5 Hyperlipidemia, unspecified; F10.11 Alcohol abuse, in remission; I48.91 Unspecified atrial fibrillation; I25.10 Atherosclerotic heart disease of native coronary artery without angina pectoris; Z91.14 Patient's other noncompliance with medication regimen; Z51.81 Encounter for therapeutic drug level monitoring; Z79.899 Other long term (current) drug therapy; Z79.82 Long term (current) use of aspirin; Z85.3 Personal history of malignant neoplasm of breast; Z86.73 Personal history of transient ischemic attack (TIA), and cerebral infarction without residual deficits; Z98.890 Other specified postprocedural states; Z88.0 Allergy status to penicillin; Z82.49 Family history of ischemic heart disease and other diseases of the circulatory system; Z83.3 Family history of diabetes mellitus

== ENCOUNTER → 2018-05-28 | Outpatient (CLI) | payer OTHER, BC ==
[~2018-05-28] MED LIST changes: +APR25 PO; -CLOP1TAB15 PO; -HYDR-4716 PO; +PLV75 PO; -PRED20TA PO; +SIMV-151 PO; -SIMV20TA5 PO
== END | disposition home or self-care (01) ==
LOC: C.LABSPEC 16:56
PROVIDERS: ATTEND Nurse Practitioner Family
DX: E87.1 Hypo-osmolality and hyponatremia (principal); R41.3 Other amnesia

== ENCOUNTER → 2018-06-10 | Outpatient (CLI) | payer OTHER, BC ==
[2018-06-10 12:28] LABS: HEMATOCRIT 36.4 % (37-47); HEMOGLOBIN 12.7 g/dL (12.0-16.0); MEAN CELL VOLUME 87.5 fL (80-100); MEAN CORPUSCULAR HEMOGLOBIN 30.5 pg (25-34); MEAN CORPUSCULAR HGB CONC 34.9 g/dl (32-36); PLATELET COUNT 348 K/uL (130-400); RED CELL DISTRIBUTION WIDTH CV 12.8 % (11.5-14.5); RED CELL DISTRIBUTION WIDTH SD 40.9 fL (36.4-46.3); WHITE BLOOD COUNT 6.45 K/uL (4.8-10.8)
[2018-06-10 13:00] LABS: OSMOLALITY,URINE 209 mOms/kg (500-800)
[2018-06-10 13:08] LABS: ALBUMIN 4.4 gm/dl (3.4-5.0); BLOOD UREA NITROGEN 11 mg/dl (7-18); CALCIUM 8.8 mg/dl (8.5-10.1); CARBON DIOXIDE 23 mmol/L (21-32); CREATININE 1.11 mg/dl (0.60-1.20); GLUCOSE 93 mg/dl (70-99); PHOSPHORUS 3.1 mg/dl (2.5-4.9); POTASSIUM 3.8 mmol/L (3.5-5.1); SODIUM 125 mmol/L (136-145)
== END | disposition home or self-care (01) ==
LOC: C.LAB 09:46
PROVIDERS: ATTEND Internal Medicine Nephrology
DX: R01.1 Cardiac murmur, unspecified (principal); F10.21 Alcohol dependence, in remission